=== PATIENT | female | born 1965 | race Caucasian/White ===

== ENCOUNTER 2024-09-12 11:21 | Outpatient (AMB) | payer OTHER, MEDICAID, SELFPAY ==
--- NOTE | 2024-09-12 11:36 | PD.GSCLVISIT ---
Vital Signs - [facility] 09/12/24 11:37 Height 1.63 m Height Method Stated Weight 99.025 kg Weight Measurement Method Standing Scale BMI 37.3 BP 111/74 Blood Pressure Source Automatic Cuff Blood Pressure Location Right Upper Arm Position Sitting Respiration 18 Pulse 88 Pulse Source Monitor Temp 97.5 F Temp Source Temporal Artery Scan Pulse Oximetry (%) 96 Oxygen Delivery Method Room Air Med/Allergies Allergies & Medications Allergies aspirin Allergy (Severe, Verified 09/12/24 11:37) Swelling of Lip/Tongue/Throat codeine Allergy (Severe, Verified 09/12/24 11:37) Unresponsive magnesium sulfate Allergy (Severe, Verified 09/12/24 11:37) Swelling of Lip/Tongue/Throat metoclopramide [From Reglan] Allergy (Severe, Verified 09/12/24 11:37) Vomiting Penicillins Allergy (Severe, Verified 09/12/24 11:37) Hives pepper (genus Capsicum) Allergy (Severe, Verified 09/12/24 11:37) Difficulty Breathing Sulfa (Sulfonamide Antibiotics) Allergy (Severe, Verified 09/12/24 11:37) Swelling of Lip/Tongue/Throat strawberry Allergy (Verified 09/12/24 11:37) Medication Reconciliation lisinopril 20 mg-hydrochlorothiazide 12.5 mg tablet 1 tab PO QDAY 03/27/23 [History Confirmed 09/12/24] acetaminophen 500 mg capsule 500 mg PO Q6H PRN pain #30 caps 04/03/23 [Rx Confirmed 09/12/24] flash glucose scanning reader (Apothesourceyle Russ 2 [place]) #1 ea 05/18/23 [Rx Confirmed 09/12/24] flash glucose sensor (Designer Pages OnlineStyle Russ 2 Sensor kit) #1 ea 06/05/23 [Rx Confirmed 09/12/24] fluticasone 250 mcg-salmeterol 50 mcg/dose blistr powdr for inhalation (Advair Diskus) 1 inh inhalation BID #60 ea 08/18/23 [Rx Confirmed 09/12/24] albuterol sulfate 90 mcg/actuation aerosol inhaler 1 inh inhalation QID PRN shortness of breath or wheezing #6.7 grams 11/30/23 [Rx Confirmed 09/12/24] empagliflozin 25 mg tablet 25 mg PO QAM #30 tabs 11/30/23 [Rx Confirmed 09/12/24] levothyroxine 175 mcg capsule 175 mcg PO QDAY 6 weeks #42 caps 11/30/23 [Rx Confirmed 09/12/24] metoprolol succinate 25 mg tablet,extended release 24 hr 25 mg PO QDAY #30 tabs 11/30/23 [Rx Confirmed 09/12/24] pantoprazole 40 mg tablet,delayed release 40 mg PO QDAY #30 tabs 11/30/23 [Rx Confirmed 09/12/24] pioglitazone 45 mg tablet 45 mg PO QDAY #30 tabs 11/30/23 [Rx Confirmed 09/12/24] pravastatin 80 mg tablet 80 mg PO QDAY #30 tabs 11/30/23 [Rx Confirmed 09/12/24] hydrocodone 7.5 mg-acetaminophen 325 mg tablet 1 tab PO Q8H PRN pain #30 tabs 01/01/24 [Rx Confirmed 09/12/24] flash glucose sensor (FreeStyle Russ 2 Sensor kit) #1 ea 01/18/24 [Rx Confirmed 09/12/24] lancets 28 gauge (Acti-Otilio Lancets) #100 ea 01/18/24 [Rx Confirmed 09/12/24] montelukast 10 mg tablet 10 mg PO QDAY #30 tabs 01/18/24 [Rx Confirmed 09/12/24] sucralfate 1 gram tablet 1 g PO BID 1 month #60 tabs 01/18/24 [Rx Confirmed 09/12/24] pen needle,diabetic dual safty 30 gauge x 3/16 (BD AutoShield Duo Pen Needle) #100 ea 01/19/24 [Rx Confirmed 09/12/24] ondansetron HCl 4 mg tablet 4 mg PO Q8H PRN nausea and vomiting 15 days #30 tabs 01/30/24 [Rx Confirmed 09/12/24] insulin glargine U-300 conc 300 unit/mL (3 mL) subcutaneous pen (Toujeo Max U-300 SoloStar) 80 unit subcut QDAY 08/09/24 [History Confirmed 09/12/24] promethazine 25 mg tablet 25 mg PO TID PRN nausea and vomiting #30 tabs 08/11/24 [Rx Confirmed 09/12/24] MA Intake Visit Data Collection New Patient or Established: Established Patient (seen at [facility] within 3 years) Seen by Clinical Staff ONLY (RN/MA): No Reason for Visit:: THROMBOSED EXTERNAL HEMORRHOID Pain Present Currently: No Wireless Engineer Required: No PCP or OBGYN visit in last 3 months: Yes Hx Now: No Do You Feel Safe at Home: Yes Authorities Contacted: N/A Smoking Status Smoking Status: Former smoker Immunization / Flu Flu Vaccine in the Last 12 Months: No Flu Vaccine Exclusion Criteria: No Exclusion Criteria Past Medical History Past Medical History NEUROLOGIC: Negative Seizures CARDIAC: Positive Cardiac Disorders, Myocardial Infarction, Angina, Coronary Artery Disease and Hypercholesterolemia; Negative Congestive Heart Failure or Hypertension RESPIRATORY: Positive Chronic Obstructive Pulmonary Disease (COPD), Asthma and Pneumonia GASTROINTESTINAL: Positive Colitis and Obstructive Bowel GENITOURINARY: Negative Renal Disease MUSCULOSKELETAL: Positive Arthritis ENDOCRINE: Positive Diabetes Mellitus Type 2 and Hypothyroidism; Negative Diabetes Mellitus Type 1 HEMATOLOGIC: Negative Sickle Cell Disease PSYCHO/SOCIAL: Positive Recreational Drug Use OTHER HISTORY: Positive Hospitalization; Negative Blood Transfusions, Blood Transfusion Reaction or Anesthesia Reactions (Possible reaction to iodine) Family History FAMILY HISTORY: Positive Family Cancer Surgical History SURGICAL: Positive Angiogram and Section Social History SMOKING STATUS: Smoking status: Former smoker ALCOHOL: Alcohol Intake: Never HOUSING: Housing: House LIVES WITH: Lives With: Alone HPI HPI Narrative 59 y/o F presenting to the clinic for painful external hemorrhoid. Per patient, she began having external hemorroids after her recent hospitalization in Jul 2024. The hemorrhoids became intermittently painful 2 weeks ago, 05/08 - 07/09 on painscale, pain with BM or with wiping. She reports pressure pain in the area with friction and pain has not improved with hydrocodone medication. She is not able to take sitz baths due to knee problems and has not tried any other remedy; she reports her BMs alternate between constipation and diarrhea which is a longstanding problem PMH: thyroid, DM- neuropathy, CKD, FLD, 70% occlusion of LAD, COPD. PSH: gallbladder 2001, Colonoscopy 2022, Endoscopy 2023 All: penicillin, asa, sulfa Meds: Lisinopril, metoprolol Familyhx: Dad due to brain CA, Mother: decreased due to lung cancer; following recovery from Breast CA. 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 ROS Review of Systems Systems Reviewed: All systems reviewed, normal except as documented Constitutional Constitutional: Reports as per HPI, Denies fever(s), Denies increased appetite, Denies night sweats, Denies weight gain and Denies weight loss Eyes Eyes: Reports change in vision Comments: Cataracts Cardiovascular Cardiovascular: Denies chest pain with activity, Denies claudication, Denies diaphoresis, Reports dyspnea and Denies pedal edema Respiratory Respiratory: Denies cough, Reports dyspnea and Denies hemoptysis Gastrointestinal Gastrointestinal: Denies abdominal pain Comments: Reports intermittent diarrhea Objective/Exam General General Appearance: alert, in no apparent distress and comfortable Head Head exam: normal inspection Rectal Rectal exam: Present hemorrhoids (1x Lt thrombosed hemorrhoid with minimal discoloration, moderate tenderness to palpation. DAVIDE and anoscopy deferred due to pain) Assessment & Plan Diagnosis / Problem List (1) Hemorrhoid thrombosis: Status: Acute Assessment & Plan: 59 y/o F presenting with 2 week hx of painful external hemorrhoid with signs of thrombosis. We discussed the option of incising and draining the hemorrhoid, however the patient states she would like to attempt conservative management with hot pads, hemorrhoid creams and will consider surgery if recurrent or unable to tolerate pain. All questions were answered and pt agrees to follow up in 6 weeks or sooner if needed Office Procedures GNS Level of Care Nursing/Assessment Patient Status: Established Patient Nursing Assessment/Reassesment: Medication Reconciliation, Update PMH in EMR and Vital Signs Coordination of Care: Complex Care and Chronic Disease 1-5, Education Complex Pt/Fam, Consent,records obtained, informed consent, Results/Orders obtained and Staff clarify orders Established Patient Charge Established Patient Point Assignment: 95 Established Patient Point Charge: EP Level 3 (80-115) Patient Portal Questionaires Social History Living Situation History Housing: House Tobacco History Smoking Status: Former smoker Alcohol History Alcohol Intake: Never Substance Use History Substance Use: Marijuana Domestic Abuse History Do You Feel Safe at Home: Yes Review of Systems Report any current symptoms Only answer those that you have currently: General Complaints fever(s): No increased appetite: No night sweats: No weight gain: No weight loss: No Eyes change in vision: Yes Heart & Circulation chest pain with activity: No leg pain with activity: No excessive sweating: No shortness of breath: Yes foot swelling: No Breathing & Lungs cough: No coughing up blood: No Digestive System abdominal pain: No Past Medical History Past Medical History Have you ever been diagnosed with any of the following: Neurological Problems Seizures: No Cardiology Problems Myocardial Infarction: Yes Angina: Yes Coronary Artery Disease: Yes Hypercholesterolemia: Yes Congestive Heart Failure: No Hypertension: No Respiratory Problems Chronic Obstructive Pulmonary Disease (COPD): Yes Asthma: Yes Pneumonia: Yes Stomache/Intestinal Problems Colitis: Yes Obstructive Bowel: Yes Genital/Urinary Problems Renal Disease: No Musculoskeletal Problems Arthritis: Yes Endocrine Problems Diabetes Mellitus Type 1: No Diabetes Mellitus Type 2: Yes Hypothyroidism: Yes Blood Problems Sickle Cell Disease: No Psychologic Problems Recreational Drug Use: Yes Other Problems Hospitalization: Yes Blood Transfusions: No Blood Transfusion Reaction: No Anesthesia Reactions: No (Possible reaction to iodine)
[2024-09-12 11:37] VITALS: BP 111/74; PULSE 88; RESP 18; TEMP 36.4; O2SAT 96; BMI 37.3
== END 2024-09-12 12:24 | disposition home or self-care (01) ==
LOC: HODSRG 11:22
PROVIDERS: PCP Nurse Practitioner Family; Referring Provider Nurse Practitioner Family; Supervising Provider Surgery; Visit Provider Surgery
DX: K64.5 Perianal venous thrombosis (principal); E78.00 Pure hypercholesterolemia, unspecified; I10 Essential (primary) hypertension; I25.10 Atherosclerotic heart disease of native coronary artery without angina pectoris; J44.9 Chronic obstructive pulmonary disease, unspecified; E11.9 Type 2 diabetes mellitus without complications; E03.9 Hypothyroidism, unspecified; Z87.891 Personal history of nicotine dependence
CPT/HCPCS: 99213; G0463

== ENCOUNTER → 2024-10-10 | Outpatient (CLI) | payer OTHER, MEDICAID, SELFPAY ==
--- NOTE | 2024-10-10 15:15 | XR_ITS ---
MRI shoulder, left, without contrast. Date and time: October 10, 2024 at 1539 hours INDICATIONS: Right shoulder pain one year's stiffness decreased range of motion Technique: Multiple axial, sagittal and coronal sections of the shoulder have been obtained. Siemens high-resolution 1.5 Kacey MRI scanner is utilized. Axial fat-suppressed sections, TR 2350, TE 18 T2-weighted coronal fat-saturated images, TR 3500, TE 7100 T1-weighted coronal images, TR 500, TE 15 T2-weighted sagittal fat-saturated images, TR 3500, TE 57 T1-weighted sagittal sections, TR 504, TE 13. Findings: Supraspinatus tendon insertion is abnormal, 14 mm partial-thickness articular surface tear. Infraspinatus tendon insertion is intact. Subscapularis insertion is intact. Subscapularis bursa is not seen. Long head of the biceps is in the bicipital groove. No definite tear of the biceps superior labral anchor is seen. Retraction of the musculotendinous junction of the rotator cuff is not seen . Tendinosis pattern is moderate. Distance between the acromium and humeral head is 6.6 mm Atrophy of the supraspinatus muscle is severe. Atrophy of the infraspinatus muscle is moderate. Sagittal sections demonstrate a horizontal acromion. Acromioclavicular joint demonstrates mild osteoarthritis . Osacromiale is not identified. Fraying and irregularity anterior superior labral margins. Bony glenoid fossa on the sagittal sections does not demonstrate osseous defect. Occult fracture or area of avascular necrosis is not seen. Acromioclavicular joint separation is not visible. Defect in the posterolateral margin of the humeral head is not seen Impression: 14 mm partial-thickness articular surface tear supraspinatous Fraying and irregularity anterior superior labral margin
== END | disposition home or self-care (01) ==
LOC: SMRI 10-11 07:34
PROVIDERS: PCP Orthopaedic Surgery; Referring Provider Orthopaedic Surgery; Visit Provider Orthopaedic Surgery
DX: M75.101 Unspecified rotator cuff tear or rupture of right shoulder, not specified as traumatic (principal)
CPT/HCPCS: 73221

== ENCOUNTER → 2024-10-15 | Outpatient (CLI) | payer OTHER, MEDICAID, SELFPAY ==
[2024-10-15 09:14] LABS: Basophils # (Auto) 0.1 Thou/mm3 (0.0-0.2); Basophils % (Auto) 1 % (0-2.5); Eosinophils # (Auto) 0.1 Thou/mm3 (0.0-0.5); Eosinophils % (Auto) 2 % (0-10); Hematocrit 40.2 % (36.0-46.0); Hemoglobin 13.7 g/dL (12.0-16.0); Immature Granulocytes % (Auto) 0 % (0-0); Immature Granulocytes Auto 0.02 Thou/mm3 (0.00-0.00); Lymphocytes # (Auto) 1.5 Thou/mm3 (1.0-4.8); Lymphocytes % (Auto) 22 % (10-50); Mean Corpuscular HGB Conc 34.1 g/dl (31.0-37.0); Mean Corpuscular Hemoglobin 29.7 pg (25.0-35.0); Mean Corpuscular Volume 87 fL (80-100); Monocytes # (Auto) 0.6 Thou/mm3 (0.0-0.8); Monocytes % (Auto) 8 % (0-12); Neutrophils # (Auto) 4.6 Thou/mm3 (1.8-7.7); Neutrophils % (Auto) 67 % (37-80); Nucleated Red Blood Cell % 0 /100 WBC (0); Platelet Count 295 Thou/mm3 (140-440); RDW Standard Deviation 47.8 fL (36.4-46.3); Red Blood Count 4.61 Miln/mm3 (4.00-5.20); White Blood Count 6.9 Thou/mm3 (3.6-11.0)
[2024-10-15 09:27] LABS: Glucose Estimated Average 157 mg/dL (80-131); Hemoglobin A1C 7.1 % Hgb (4.8-6.0)
[2024-10-15 09:37] LABS: Alanine Aminotransferase 16 U/L (10-49); Albumin/Globulin Ratio 2.6 (1.2-2.2); Alkaline Phosphatase 64 U/L (46-116); Anion Gap 9 (7-16); Aspartate Amino Transferase 17 U/L (0-34); BUN/Creatinine Ratio 30 Ratio (12-20); Bilirubin,Total 0.3 mg/dL (0.3-1.2); Blood Urea Nitrogen 30 mg/dL (9-23); Calcium 9.9 mg/dL (8.3-10.6); Calcium (Corrected) 9.9 mg/dL (8.5-10.1); Carbon Dioxide 28.3 mMol/L (20.0-31.0); Cardiac Risk Estimate 3.1 RATIO (3.7-5.6); Chloride 99 mMol/L (98-107); Cholesterol 163 mg/dL (132-200); Free T4 (Free Thyroxine) 1.93 ng/dL (0.89-1.76); Globulin 1.9 gm/dL (2.3-3.5); Glucose 187 mg/dL (74-106); HDL Cholesterol 52 mg/dL (40-60); LDL Cholesterol,Calculated 92 mg/dL (0-130); Osmolality,Calculated 283 (275-295); Potassium 4.2 mMol/L (3.4-5.1); Sodium 136 mMol/L (136-145); Thyroid Stimulating Hormone 0.21 uIU/mL (0.55-4.78); Total Protein 6.9 gm/dL (5.7-8.2); Triglycerides 97 mg/dL (30-150); eGFR > 60 See Note
== END | disposition home or self-care (01) ==
PROVIDERS: PCP Nurse Practitioner Family; Referring Provider Nurse Practitioner Family; Visit Provider Nurse Practitioner Family
DX: E11.65 Type 2 diabetes mellitus with hyperglycemia (principal); E03.9 Hypothyroidism, unspecified; Z79.899 Other long term (current) drug therapy
CPT/HCPCS: 36415; 80053; 80061; 83036; 84439; 84443; 85025

== ENCOUNTER 2024-10-31 07:16 | Emergency (ER) | payer OTHER, SELFPAY ==
[2024-10-31 07:29] VITALS: PULSE 91; RESP 24; O2SAT 95; BMI 36.8
[2024-10-31 07:58] VITALS: BP 166/69; PULSE 89; RESP 20; TEMP 37; O2SAT 98
--- NOTE | 2024-10-31 09:12 | XR_ITS ---
Examination: PA lateral chest 2 views TECHNIQUE: Upright PA lateral chest 2 views Exam date and time: October 31, 2024 0933 hours INDICATIONS: Vomiting diarrhea shortness of breath beginning 2 days ago. FINDINGS: Normal heart size Lungs are clear Stable small granuloma in the right upper lobe compared with March 30, 2023 Moderate osteopenia IMPRESSION: No interval pneumonia or pulmonary edema
--- NOTE | 2024-10-31 09:15 | EDRME_ITS ---
Rapid Medical Screening Exam [facility] Arrival date/time: 10/31/24 07:16 Chief Complaint: Flu Like Symptoms Time Seen by Provider: 10/31/24 08:00 Vital signs: Vital Signs Temperature 98.6 F 10/31/24 07:58 Pulse Rate 89 10/31/24 07:58 Respiratory Rate 20 10/31/24 07:58 Blood Pressure 166/69 H 10/31/24 07:58 Pulse Oximetry (%) 98 10/31/24 07:58 Oxygen Delivery Method Room Air 10/31/24 07:58 [facility] Narrative: 59-year-old female with history of diabetes presents emergency department with complaint of excessive thirst, nausea, vomiting, diarrhea, for the past 2 days. Patient denies any alleviating or aggravating factors. Patient denies fever chills or sick contacts.
[2024-10-31 10:10] LABS: Lactate (Lactic Acid) 1.9 mMol/L (0.4-2.0)
[2024-10-31 10:12] LABS: Basophils % (Auto) 0 % (0-2.5); Eosinophils % (Auto) 0 % (0-10); Hematocrit 40.6 % (36.0-46.0); Hemoglobin 14.1 g/dL (12.0-16.0); Immature Granulocytes % (Auto) 0 % (0-0); Immature Granulocytes Auto 0.04 Thou/mm3 (0.00-0.00); Lymphocytes # (Auto) 0.8 Thou/mm3 (1.0-4.8); Lymphocytes % (Auto) 7 % (10-50); Mean Corpuscular HGB Conc 34.7 g/dl (31.0-37.0); Mean Corpuscular Hemoglobin 29.4 pg (25.0-35.0); Mean Corpuscular Volume 85 fL (80-100); Monocytes # (Auto) 0.3 Thou/mm3 (0.0-0.8); Monocytes % (Auto) 2 % (0-12); Neutrophils # (Auto) 10.6 Thou/mm3 (1.8-7.7); Neutrophils % (Auto) 91 % (37-80); Nucleated Red Blood Cell % 0 /100 WBC (0); Platelet Count 305 Thou/mm3 (140-440); RDW Standard Deviation 44.7 fL (36.4-46.3); White Blood Count 11.7 Thou/mm3 (3.6-11.0)
[2024-10-31] MEDS: SODIUM CHLORIDE 0.9% 1000 ML 1,000 ML 999 ML IV (10:15)
[2024-10-31] MEDS: ONDANSETRON INJ 2 MG/ML INJ 2 ML 4 MG IV (10:16)
[2024-10-31 10:39] LABS: Alanine Aminotransferase 22 U/L (10-49); Albumin, Serum 5.4 gm/dL (3.4-4.8); Albumin/Globulin Ratio 2.3 (1.2-2.2); Alkaline Phosphatase 65 U/L (46-116); Anion Gap 14 (7-16); Aspartate Amino Transferase 23 U/L (0-34); BUN/Creatinine Ratio 31 Ratio (12-20); Bilirubin,Total 0.5 mg/dL (0.3-1.2); Blood Urea Nitrogen 47 mg/dL (9-23); Calcium 10.3 mg/dL (8.3-10.6); Calcium (Corrected) 10.3 mg/dL (8.5-10.1); Carbon Dioxide 25.6 mMol/L (20.0-31.0); Chloride 94 mMol/L (98-107); Creatinine (Component) 1.5 mg/dL (0.6-1.3); Estimated Creatinine Clearance 44.7 mL/min (>60); Globulin 2.3 gm/dL (2.3-3.5); Glucose 180 mg/dL (74-106); Osmolality,Calculated 285 (275-295); Potassium 4.1 mMol/L (3.4-5.1); Sodium 134 mMol/L (136-145); Total Protein 7.7 gm/dL (5.7-8.2); eGFR 39 See Note
--- NOTE | 2024-10-31 12:05 | XR_ITS ---
Examination: CT abdomen and pelvis without contrast. Coronal 3-D reconstructions. Sagittal 2-D reconstructions. Date and time of exam:October 31, 2024 1248 hours INDICATIONS: Intermittent abdominal pain nausea vomiting cramping beginning today COMPARISON: 07/02/2023 CTDI: vol (mGy): 15 DLP: (mGycm): 830 Technique: Axial images of the abdomen have been obtained, 3 mm slice thickness Intravenous contrast material has not been administered. Low dose protocols were performed. One or more of the following dose reduction techniques were used; automated exposure control, adjustment of the mA and/or KV according to patient size, use of iterative reconstruction technique. Findings: No focal liver or splenic lesion Absent gallbladder No pancreatic mass Nodular thickening left adrenal gland No renal or ureteral calculi, no hydronephrosis Abdominal aortic calcification no aneurysmal dilatation Normal appendix No bowel obstruction No diverticulitis Atrophic anteverted uterus No adnexal mass Urinary bladder intact Significant osteopenia Moderate narrowing hip joints IMPRESSION: No renal or ureteral calculi, no hydronephrosis Normal appendix No bowel obstruction diverticulitis or free air
[2024-10-31 12:11] LABS: Collection Type, Urine Voided
[2024-10-31 12:15] LABS: Bilirubin,Urine Negative (Negative); Blood,Urine Trace (Negative); Clarity,Urine Clear (Clear/Hazy); Color,Urine Lt-Yellow (Lt Yel-Yel); Culture Indicated,Urine Not Indicated; Glucose, Urine 4+ (Negative); Ketones,Urine 2+ (Negative); Leukocyte Esterase,Urine Negative (Negative); Nitrite,Urine Negative (Negative); PH,Urine 5.5 (5.0-7.0); Protein,Urine Trace (Neg - Trace); RBC,Urine 3 /hpf (0-3); Specific Gravity,Urine 1.026 (1.001-1.035); Squamous Epithelial Cell,Urine < 1 /hpf (0-5); Urobilinogen,Urine Negative mg/dL (0.0-1.0); WBC,Urine 1 /hpf (0-5)
[2024-10-31] MEDS: PROMETHAZINE HCL 25 MG TABLET 50 MG PO (12:17)
[2024-10-31] MEDS: HYDROcodone/APAP 10/325 TAB PO (12:17)
--- NOTE | 2024-10-31 14:39 | EDNOTE_ITS ---
<Statement entered by Heidy Bear MD - 11/01/24 06:45> As co-signing physician, I was present and available for consult prn. I concur with the plan and care as documented by the midlevel provider. ED Abdominal Pain RME/HPI General Chief Complaint: Flu Like Symptoms Stated complaint: FLU LIKE SYMPTOMS Time seen by provider: 10/31/24 08:00 Arrival date/time: 10/31/24 07:16 RME / HPI RME / HPI narrative: 59-year-old female with history of diabetes presents emergency department with complaint of excessive thirst, nausea, vomiting, diarrhea, for the past 2 days. Patient denies any alleviating or aggravating factors. Patient denies fever chills or sick contacts. Related Data Home Medications ?Medication ?Instructions ?Recorded ?Confirmed lisinopril 20 1 tab PO QDAY 03/27/23 09/12/24 mg-hydrochlorothiazide 12.5 mg tablet insulin glargine U-300 conc 300 80 unit subcut QDAY 08/09/24 09/12/24 unit/mL (3 mL) subcutaneous pen (Toujeo Max U-300 SoloStar) Previous Rx's ?Medication ?Instructions ?Recorded acetaminophen 500 mg capsule 500 mg PO Q6H PRN pain #30 caps 04/03/23 flash glucose scanning reader #1 ea 05/18/23 (FreeStyle Russ 2 Snelling) flash glucose sensor (FreeStyle #1 ea 06/05/23 Russ 2 Sensor kit) fluticasone 250 mcg-salmeterol 50 1 inh inhalation BID #60 ea 08/18/23 mcg/dose blistr powdr for inhalation (Advair Diskus) albuterol sulfate 90 mcg/actuation 1 inh inhalation QID PRN shortness 11/30/23 aerosol inhaler of breath or wheezing #6.7 grams empagliflozin 25 mg tablet 25 mg PO QAM #30 tabs 11/30/23 levothyroxine 175 mcg capsule 175 mcg PO QDAY 6 weeks #42 caps 11/30/23 metoprolol succinate 25 mg 25 mg PO QDAY #30 tabs 11/30/23 tablet,extended release 24 hr pantoprazole 40 mg tablet,delayed 40 mg PO QDAY #30 tabs 11/30/23 release pioglitazone 45 mg tablet 45 mg PO QDAY #30 tabs 11/30/23 pravastatin 80 mg tablet 80 mg PO QDAY #30 tabs 11/30/23 hydrocodone 7.5 mg-acetaminophen 1 tab PO Q8H PRN pain #30 tabs 01/01/24 325 mg tablet flash glucose sensor (FreeStyle #1 ea 01/18/24 Russ 2 Sensor kit) lancets 28 gauge (Acti-Otilio #100 ea 01/18/24 Lancets) montelukast 10 mg tablet 10 mg PO QDAY #30 tabs 01/18/24 sucralfate 1 gram tablet 1 g PO BID 1 month #60 tabs 01/18/24 pen needle,diabetic dual safty 30 #100 ea 01/19/24 gauge x 3/16 (BD AutoShield Duo Pen Needle) ondansetron HCl 4 mg tablet 4 mg PO Q8H PRN nausea and 01/30/24 vomiting 15 days #30 tabs promethazine 25 mg tablet 25 mg PO TID PRN nausea and 08/11/24 vomiting #30 tabs promethazine 25 mg tablet 25 mg PO TID #30 tabs 10/31/24 Allergies Allergy/AdvReac Type Severity Reaction Status Date / Time aspirin Allergy Severe Swelling Verified 09/12/24 11:37 of Lip/Tongue/Throat codeine Allergy Severe Unresponsiv Verified 09/12/24 11:37 e magnesium sulfate Allergy Severe Swelling Verified 09/12/24 11:37 of Lip/Tongue/Throat metoclopramide [From Reglan] Allergy Severe Vomiting Verified 09/12/24 11:37 Penicillins Allergy Severe Hives Verified 09/12/24 11:37 pepper (genus Capsicum) Allergy Severe Difficulty Verified 09/12/24 11:37 Breathing strawberry Allergy Severe Swelling Verified 10/31/24 07:36 of Lip/Tongue/Throat Sulfa (Sulfonamide Allergy Severe Swelling Verified 09/12/24 11:37 Antibiotics) of Lip/Tongue/Throat Review of Systems Review of Systems Systems Reviewed: All systems reviewed, normal except as documented Constitutional Constitutional: Reports system reviewed and no additional complaints, except as documented ENT Ears, Nose, Mouth, and Throat: Reports system reviewed and no additional complaints, except as documented Cardiovascular Cardiovascular: Reports system reviewed and no additional complaints, except as documented Respiratory Respiratory: Reports system reviewed and no additional complaints, except as documented Musculoskeletal Musculoskeletal: Reports system reviewed and no additional complaints, except as documented Neurologic Neurologic: Reports system reviewed and no additional complaints, except as documented Psychiatric Psychiatric: Reports system reviewed and no additional complaints, except as documented Endocrine Endocrine: Reports system reviewed and no additional complaints, except as documented ED Exam General General appearance: Present alert and in no apparent distress Head Head exam: Present atraumatic and normocephalic ENT ENT exam: Present normal exam and normal oropharynx Neck Neck exam: Present normal inspection and full ROM Chest Chest inspection: Present normal inspection and symmetric chest wall rise Cardiovascular Cardiovascular exam: Present regular rate and normal rhythm Extremities Exam Extremities exam: Present normal inspection and full ROM Neurological Exam Neurological exam: Present alert and oriented X3 Psychiatric Psychiatric exam: Present normal affect and normal mood Course Quality Measures none Orders Category Date Time Status Bedside COVID-19 Antigen Test NOW Care 10/31/24 09:13 Active Bedside Influenza A&B Antigen Test NOW Care 10/31/24 09:[address] abdomen pelvis wo con Stat Exams 10/31/24 12:05 Completed XR chest 2V Stat Exams 10/31/24 09:12 Completed CBC [CBC] Stat Lab 10/31/24 10:05 Completed CMP [Comprehensive Metabolic Panel] Stat Lab 10/31/24 10:05 Completed Lactic Acid [Lactate (Lactic Acid)] Stat Lab 10/31/24 10:05 Completed Urinalysis, C/S if Indicated Stat Lab 10/31/24 12:03 Completed HYDROcodone/APAP 10/325 [[place] 10/325] Med 10/31/24 12:05 Discontinued 1 tab PO X1 ONE Ondansetron Inj [Zofran Inj] Med 10/31/24 09:14 Discontinued 4 mg IV X1 ONE Promethazine HCl [Phenergan Supp] Med 10/31/24 12:05 Discontinued 50 mg SD X1 ONE Promethazine HCl [Phenergan] Med 10/31/24 12:13 Discontinued 50 mg PO X1 ONE Sodium Chloride 0.9% 1000 ml [Ns] 1,000 ml Med 10/31/24 09:14 Discontinued IV 999 mls/hr Vital Signs Vital signs: Vital Signs Temperature 98.6 F 10/31/24 07:58 Pulse Rate 89 10/31/24 07:58 Respiratory Rate 20 10/31/24 07:58 Blood Pressure 166/69 H 10/31/24 07:58 Pulse Oximetry (%) 98 10/31/24 07:58 Oxygen Delivery Method Room Air 10/31/24 07:58 Abdominal Pain MDM MDM Narrative MDM Narrative:: Etiology of patient's symptoms idiopathic at this visit blood work unremarkable CT unremarkable chest x-ray was also unremarkable patient states she feels better after IV fluids stable to [place] home Patient data External records reviewed:: None Clinical information provided by:: patient Social determinants that could affect healthcare access:: none Patient has the following chronic illnesses:: na How is presenting disease/condition affected by chronic disease/condition?: uneffected by Evaluation data The following diagnostics were reviewed and interpreted by me:: lab results and radiology exam(s) Lab and/or radiology exams considered but not ordered:: both considered and ordered Interpretation Summary: unremarkable Medications / Prescriptions Medications or Prescriptions considered but not ordered:: anti- nausea meds ordered Medication administrations:: Medication Administration History Discontinued Medications Hydrocodone Bitart/Acetaminophen (Hydrocodone/Apap 10/325 Tab) 1 tab PO X1 ONE Stop: 10/31/24 12:06 Last Admin: 10/31/24 12:17 Dose: 1 tab Documented By: EPIFANIO Sodium Chloride (Ns) 1,000 mls @ 999 mls/hr IV .Q1H1M ONE Stop: 10/31/24 10:14 Last Infusion: 10/31/24 13:35 Dose: Infused Documented By: Admin: 10/31/24 10:15 Dose: 999 mls/hr Documented By: EPIFANIO Ondansetron HCl (Ondansetron Inj 2 Mg/Ml Inj 2 Ml) 4 mg IV X1 ONE; Protocol Stop: 10/31/24 09:15 Last Admin: 10/31/24 10:16 Dose: 4 mg Documented By: EPIFANIO Promethazine HCl (Promethazine Hcl 50 Mg Supp) 50 mg SD X1 ONE Stop: 10/31/24 12:06 Last Admin: 10/31/24 12:15 Dose: Not Given Documented By: EPIFANIO Non-Admin Reason: Cancelled by Provider Promethazine HCl (Promethazine Hcl 25 Mg Tablet) 50 mg PO X1 ONE Stop: 10/31/24 12:14 Last Admin: 10/31/24 12:17 Dose: 50 mg Documented By: EPIFANIO per above Consultations Consultation(s) initiated? (list below): No Diagnosis Differential diagnosis abdominal pain: abdominal pain, constipation, diverticulitis, gastroenteritis and small bowel obstruction Most likely diagnosis given after review of the tests above:: nausea, abdominal pain Admission Indicated Admission indicated?: not indicated Admission Request Was there a request for admission?: No Disposition Plan Disposition Plan: Discharge Discharge Attestation Discharge Attestation: The patient and all family members were given an opportunity to ask questions and understood the discharge instructions. Discharge instructions specifically effects, indications for sooner follow up or return to the emergency department, and the expected course of current diagnosis. Patient condition: Stable Discharge Plan Plan Patient Disposition: HOME (Self Care) Prescriptions/Referrals Prescriptions/Med Rec: New promethazine 25 mg tablet 25 mg PO TID Qty: 30 0RF No Action (DME) FreeStyle Russ 2 Snelling Misc See Rx Instructions .Route Qty: 1 0RF Rx Instructions: As directed albuterol sulfate 90 mcg/actuation HFA aerosol inhaler 1 inh inhalation QID PRN (Reason: shortness of breath or wheezing) Qty: 6.7 4RF pantoprazole 40 mg tablet,delayed release (DR/EC) 40 mg PO QDAY Qty: 30 4RF levothyroxine 175 mcg capsule 175 mcg PO QDAY 42 Days Qty: 42 4RF metoprolol succinate 25 mg tablet extended release 24 hr 25 mg PO QDAY Qty: 30 4RF pioglitazone 45 mg tablet 45 mg PO QDAY Qty: 30 4RF pravastatin 80 mg tablet 80 mg PO QDAY Qty: 30 4RF empagliflozin 25 mg tablet 25 mg PO QAM Qty: 30 4RF (DME) FreeStyle Russ 2 Sensor Kit See Rx Instructions .Route Qty: 1 10RF Rx Instructions: As directed hydrocodone-acetaminophen 7.5-325 mg tablet 1 tab PO Q8H MDD 3 PRN (Reason: pain) Qty: 30 0RF (DME) FreeStyle Russ 2 Sensor Kit See Rx Instructions .Route Qty: 1 5RF Rx Instructions: As directed (DME) lancets [Acti-Otilio Lancets] 28 gauge misc See Rx Instructions .Route Qty: 100 3RF Rx Instructions: As directed sucralfate 1 gram tablet 1 g PO BID 30 Days Qty: 60 5RF montelukast 10 mg tablet 10 mg PO QDAY Qty: 30 4RF ondansetron HCl 4 mg tablet 4 mg PO Q8H PRN (Reason: nausea and vomiting) 15 Days Qty: 30 1RF fluticasone propion-salmeterol [Advair Diskus] 250-50 mcg/dose blister with device 1 inh inhalation BID Qty: 60 2RF (DME) BD AutoShield Duo Pen Needle 30 gauge x 3/16 needle See Rx Instructions .Route Qty: 100 0RF Rx Instructions: As directed acetaminophen 500 mg capsule 500 mg PO Q6H PRN (Reason: pain) Qty: 30 0RF lisinopril-hydrochlorothiazide 20-12.5 mg Tablet 1 tab PO QDAY insulin glargine U-300 conc [Toujeo Max U-300 SoloStar] 300 unit/mL (3 mL) insulin pen 80 unit subcut QDAY promethazine 25 mg tablet 25 mg PO TID PRN (Reason: nausea and vomiting) Qty: 30 0RF Referrals: Keyla Merlos FNP [Primary Care Provider] - In 1 week Problem List Clinical Impression: Abdominal pain, Nausea Patient/Caregiver Discharge Instructions Education Materials: Abdominal Pain, ED Flank Pain, Uncertain Cause, ED Pain, Acute, Uncertain Cause Print Language: Sami Stand Alone Forms: Radha Award Info., Patient Portal Info Letter
== END 2024-10-31 15:01 | disposition home or self-care (01) ==
PROVIDERS: Physician Assistant; Emergency Provider Emergency Medicine; PCP Nurse Practitioner Family
DX: R11.2 Nausea with vomiting, unspecified (principal); R10.9 Unspecified abdominal pain; R19.7 Diarrhea, unspecified; R63.1 Polydipsia
CPT/HCPCS: 36415; 71046; 74176; 80053; 81001; 83605; 85025; 87400; 87811; 96361; 96374; 99284; J2405; J7030; A9270

== ENCOUNTER → 2024-11-28 | Outpatient (CLI) | payer OTHER, SELFPAY ==
[2024-11-28 08:37] LABS: Basophils # (Auto) 0.1 Thou/mm3 (0.0-0.2); Basophils % (Auto) 1 % (0-2.5); Eosinophils # (Auto) 0.1 Thou/mm3 (0.0-0.5); Eosinophils % (Auto) 2 % (0-10); Hematocrit 42.1 % (36.0-46.0); Hemoglobin 13.6 g/dL (12.0-16.0); Immature Granulocytes % (Auto) 0 % (0-0); Immature Granulocytes Auto 0.03 Thou/mm3 (0.00-0.00); Lymphocytes # (Auto) 1.5 Thou/mm3 (1.0-4.8); Lymphocytes % (Auto) 23 % (10-50); Mean Corpuscular HGB Conc 32.3 g/dl (31.0-37.0); Mean Corpuscular Hemoglobin 28.8 pg (25.0-35.0); Mean Corpuscular Volume 89 fL (80-100); Monocytes # (Auto) 0.5 Thou/mm3 (0.0-0.8); Monocytes % (Auto) 8 % (0-12); Neutrophils # (Auto) 4.5 Thou/mm3 (1.8-7.7); Neutrophils % (Auto) 67 % (37-80); Nucleated Red Blood Cell % 0 /100 WBC (0); Platelet Count 328 Thou/mm3 (140-440); RDW Standard Deviation 48.4 fL (36.4-46.3); Red Blood Count 4.72 Miln/mm3 (4.00-5.20); White Blood Count 6.7 Thou/mm3 (3.6-11.0)
[2024-11-28 08:49] LABS: Glucose Estimated Average 163 mg/dL (80-131); Hemoglobin A1C 7.3 % Hgb (4.8-6.0)
[2024-11-28 09:03] LABS: B-Type Natriuretic Peptide < 20 pg/mL (0-100)
[2024-11-28 09:18] LABS: Alanine Aminotransferase 22 U/L (10-49); Albumin, Serum 4.8 gm/dL (3.4-4.8); Alkaline Phosphatase 78 U/L (46-116); Anion Gap 8 (7-16); Aspartate Amino Transferase 15 U/L (0-34); BUN/Creatinine Ratio 24 Ratio (12-20); Bilirubin,Direct 0.1 mg/dL (0.0-0.3); Bilirubin,Total 0.3 mg/dL (0.3-1.2); Blood Urea Nitrogen 24 mg/dL (9-23); Calcium 10.1 mg/dL (8.3-10.6); Carbon Dioxide 31.6 mMol/L (20.0-31.0); Cardiac Risk Estimate 3.1 RATIO (3.7-5.6); Chloride 98 mMol/L (98-107); Cholesterol 158 mg/dL (132-200); Free T4 (Free Thyroxine) 1.43 ng/dL (0.89-1.76); Glucose 142 mg/dL (74-106); HDL Cholesterol 51 mg/dL (40-60); LDL Cholesterol,Calculated 84 mg/dL (0-130); Osmolality,Calculated 281 (275-295); Potassium 4.4 mMol/L (3.4-5.1); Sodium 138 mMol/L (136-145); Thyroid Stimulating Hormone 4.62 uIU/mL (0.55-4.78); Total Protein 6.9 gm/dL (5.7-8.2); Triglycerides 117 mg/dL (30-150); eGFR > 60 See Note
== END | disposition home or self-care (01) ==
LOC: COPL 07:41
PROVIDERS: PCP Registered Nurse Community Health; Referring Provider Internal Medicine Cardiovascular Disease; Visit Provider Internal Medicine Cardiovascular Disease
DX: I25.118 Atherosclerotic heart disease of native coronary artery with other forms of angina pectoris (principal); I11.0 Hypertensive heart disease with heart failure; I50.9 Heart failure, unspecified; E78.5 Hyperlipidemia, unspecified; E13.9 Other specified diabetes mellitus without complications
CPT/HCPCS: 36415; 80048; 80061; 80076; 83036; 83880; 84439; 84443; 85025

== ENCOUNTER → 2024-12-19 | Outpatient (CLI) | payer OTHER, SELFPAY ==
[2024-12-19 10:58] LABS: Creatinine MALB Rnd Ur 61 mg/dL (30-125); Microalbumin, Random Urine < 3 mg/L (0-300)
== END | disposition home or self-care (01) ==
PROVIDERS: PCP Registered Nurse Community Health; Referring Provider Registered Nurse Community Health; Visit Provider Registered Nurse Community Health
DX: E11.65 Type 2 diabetes mellitus with hyperglycemia (principal)
CPT/HCPCS: 82043; 82570

== ENCOUNTER 2025-01-10 08:55 | Day surgery (SDC) | payer OTHER, SELFPAY ==
[2025-01-10] VITALS (8 sets, daily range): BP systolic 114–174; BP diastolic 69–98; PULSE 72–89; RESP 14–22; TEMP 37.3–37.5; O2SAT 96–100; BMI 33.6
--- NOTE | 2025-01-10 08:43 | SUR.PREOP ---
Patient expressed gratitude for prayer before their procedure.
--- NOTE | 2025-01-10 08:43 | SUR.PREOP ---
Patient expressed gratitude for prayer before their procedure.
--- NOTE | 2025-01-10 08:44 | SUR.PREOP ---
Patient expressed gratitude for prayer before their procedure.
[2025-01-10 09:54] LABS: Basophils % (Auto) 0 % (0-2.5); Eosinophils % (Auto) 0 % (0-10); Hematocrit 41.4 % (36.0-46.0); Hemoglobin 14.1 g/dL (12.0-16.0); Immature Granulocytes % (Auto) 1 % (0-0); Immature Granulocytes Auto 0.05 Thou/mm3 (0.00-0.00); Lymphocytes # (Auto) 1.1 Thou/mm3 (1.0-4.8); Lymphocytes % (Auto) 11 % (10-50); Mean Corpuscular HGB Conc 34.1 g/dl (31.0-37.0); Mean Corpuscular Hemoglobin 28.5 pg (25.0-35.0); Mean Corpuscular Volume 84 fL (80-100); Monocytes # (Auto) 0.6 Thou/mm3 (0.0-0.8); Monocytes % (Auto) 5 % (0-12); Neutrophils # (Auto) 8.8 Thou/mm3 (1.8-7.7); Neutrophils % (Auto) 83 % (37-80); Nucleated Red Blood Cell % 0 /100 WBC (0); Platelet Count 311 Thou/mm3 (140-440); RDW Standard Deviation 43.4 fL (36.4-46.3); Red Blood Count 4.94 Miln/mm3 (4.00-5.20); White Blood Count 10.6 Thou/mm3 (3.6-11.0)
[2025-01-10 10:08] LABS: Partial Thromboplastin Time 24.6 Seconds (22.0-36.0); Prothrombin Time 11.3 Seconds (9.0-12.2)
[2025-01-10 10:11] LABS: Alanine Aminotransferase 21 U/L (10-49); Albumin, Serum 4.9 gm/dL (3.4-4.8); Alkaline Phosphatase 75 U/L (46-116); Anion Gap 13 (7-16); Aspartate Amino Transferase 24 U/L (0-34); BUN/Creatinine Ratio 27 Ratio (12-20); Bilirubin,Total 0.6 mg/dL (0.3-1.2); Blood Urea Nitrogen 30 mg/dL (9-23); Calcium 9.4 mg/dL (8.3-10.6); Calcium (Corrected) 9.4 mg/dL (8.5-10.1); Carbon Dioxide 25.9 mMol/L (20.0-31.0); Chloride 91 mMol/L (98-107); Creatinine (Component) 1.1 mg/dL (0.6-1.3); Estimated Creatinine Clearance 60.1 mL/min (>60); Globulin 2.4 gm/dL (2.3-3.5); Glucose 173 mg/dL (74-106); Osmolality,Calculated 271 (275-295); Potassium 3.1 mMol/L (3.4-5.1); Sodium 130 mMol/L (136-145); Total Protein 7.3 gm/dL (5.7-8.2); eGFR 57 See Note
[2025-01-10] MEDS: RINGERS LACTATED 1000 ML 1,000 ML 20 ML IV (10:19)
--- NOTE | 2025-01-10 10:57 | SUR.PREOP ---
Patient expressed gratitude for prayer before their procedure.
--- NOTE | 2025-01-10 13:34 | PD.SUROPNT ---
Date of Procedure 01/10/25 Pre Op Diagnosis 1. Right rotator cuff tear 2 right shoulder impingement syndrome Post Op Diagnosis Same Procedure 1. Excision lateral end of the clavicle 2 excision coracoacromial ligament 3 acromioplasty 4 repair of rotator cuff 5 manipulation under anesthesia Findings Refer dictation Procedure Description The patient was given general endotracheal anesthesia. Shoulder block was given as well. Once satisfactory anesthesia was achieved patient was put in about 45?? sitting position with sandbag underneath the right shoulder blade. The part was thoroughly prepped and draped. A skin incision was made at the AC joint extending proximally towards the neck for a half inches and distally towards the arm for about couple of inches. Deeper dissection was carried out. Bleeding vessels were electrocoagulated as and when encountered. The soft tissue was reflected. Following that AC joint was exposed and AC joint was exposed. The deltoid muscle was reflected from the anterior and lateral aspect of the acromial process. The acromion process showed 3 mm osteophytes on the anterior aspect and 2 mm osteophytes on the lateral side. Following that a periosteal elevator was placed underneath the lateral end of the clavicle and lateral 3-4 mm was excised. The coracoacromial ligament was removed. The anterior 3 mm of acromion process including osteophytes were removed with the help of saw. On the lateral side about 3 mm of the acromial process was removed with the osteophytes. With the help of curved osteotome the undersurface of the Acromial processes was chiseled out. That made more room between the superior surface of the head of the humerus and undersurface of the acromial process. Following that the rotator cuff was inspected. It revealed an oval tear, however most of the fibers were attached to the greater tuberosity. Wound was irrigated with antibiotic solution every 4-5 minutes. The left shoulder was manipulated at this time. The rotator cuff tear was repaired with 2-0 Vicryl. 2 drill holes were made on the acromial process and deltoid muscle was stitched back to it. Some reinforcement sutures were placed. The subcutaneous tissue was then closed with the help of 2-0 Vicryl and 3-0 Vicryl in layers. The skin was closed with félix. After cleaning the wound with hydrogel proximal solution and sterile dressing was applied. Patient was taken to the recovery room in good condition. Estimated blood loss full range of abduction and forward flexion was achieved. 10 mL. Prognosis in this case is good. Anesthesia GETA and other Pathology / specimen None Estimated Blood Loss 10 Surgeon Khurram Dominguez MD Surgical Staff Operation Date: 01/10/25 13:15 Case Staff Anesthesiologist: Frandy Weiss RN First Assistant: June Ward
--- NOTE | 2025-01-10 13:35 | SUR.PHASEI ---
pt received from OR in recovery bay 7. pt alseep but responds to voice, breathing unlabored on oxymask 8l. v/s stable. pt dressing to right shoulder cdi. report received from Martina THOMAS and Anita CURRY.
--- NOTE | 2025-01-10 13:50 | SUR.PHASEI ---
pt able to tolerate oral fluids without difficulty swallowing or nausea/vomiting.
--- NOTE | 2025-01-10 14:29 | SUR.PHASEII ---
pt awake and alert, breathing unlabored on room air. v/s stable. pt dressing to right shoulder cdi. pt able to ambulate to wheelchair with steady gait. d/c instructions given with director career services Lela in room, all questions answered. pt d/c via wheelchair with all belongings.
--- NOTE | 2025-01-10 15:35 | ESHP_ITS ---
RE: JIMI BYERS : 1965 DATE OF ADMISSION: 01/10/2025 HISTORY OF PRESENT ILLNESS: The patient came to my office on 01/09/2025 for detailed preop history and physical examination. HISTORY OF PRESENT COMPLAINT: The patient has got pain in the right shoulder. Pain intensity is about 8 to 9/10. The patient is unable to sleep. Pain radiates towards the neck as well as towards the arm. Range of motion is severely restricted. Activities of daily living and quality of life is affected. Conservative treatment did not help her. PAST MEDICAL HISTORY: Patient has a history of diabetes mellitus and high blood pressure. No history of asthma, seizures, chest pain, myocardial infarction, or bleeding disorder. PAST SURGICAL HISTORY: Include , cholecystectomy, and knee surgery. DRUG HISTORY: The patient is taking; 1. Insulin. 2. Jardiance. 3. Levothyroxine. 4. Lisinopril. 5. Lorazepam. 6. Metoprolol. 7. Nitroglycerin. 8. Pantoprazole. 9. Promethazine. ALLERGIES: NIL KNOWN. FAMILY HISTORY AND SOCIAL HISTORY: Noncontributory in this case. PHYSICAL EXAMINATION: GENERAL: Rather overbuilt person. VITAL SIGNS: Pulse 82 per minute. Blood pressure is 148/96. NECK: Soft, supple. No masses felt. Trachea is centrally placed. CARDIOVASCULAR SYSTEM: First and second heart sounds normal. No murmur heard. LUNGS: Bilateral vesicular breath sounds. CHEST: Clear. ABDOMEN: Soft. No masses felt. Bowel sounds present. EXTREMITIES: Right shoulder examination reveals tenderness at 1+ at AC joint. Active range of motion is 0 to 60 degrees of abduction, 0 to 60 degrees of forward flexion. Internal rotation is severely restricted. DIAGNOSTIC DATA: MRI scan was obtained earlier, which revealed torn rotator cuff with arthritic changes. Beside that there is a severe atrophy of the supraspinatus and infraspinatus muscles. ASSESSMENT AND PLAN: Since the patient is symptomatic, therefore, right rotator cuff repair with Fortino procedure was discussed and advised. Detailed discussion took place with a help of shoulder model, etc. No guarantees given regarding the outcome of the procedure. Risks with anesthesia was explained and that includes, but not limited to reaction to anesthetic agents, cardiac arrest or rarely it might be fatal. Risks with operations includes infection and if that happens, the patient will need further surgical procedure. Since the patient has diabetes, therefore, risk of infection is much more compared to the nondiabetic patient. The patient's hemoglobin A1c is within acceptable limit. The patient was also sent to Dr. Stockton and he has cleared her for a surgical procedure. The patient's latest hemoglobin A1c is 7.3. Accordingly surgery is booked for 01/10/2025. All appropriate lab work was done. DT: 14:14:18 TT: 15:34:00 Ref: [id number] - TID: [id number]
== END 2025-01-10 14:29 | disposition home or self-care (01) ==
PROVIDERS: Anesthesiology; PCP Registered Nurse Community Health; Referring Provider Orthopaedic Surgery; Visit Provider Orthopaedic Surgery
PROC: (CPT 23412; principal; 2025-01-10 13:00)
DX: M75.101 Unspecified rotator cuff tear or rupture of right shoulder, not specified as traumatic (principal); M75.41 Impingement syndrome of right shoulder; E11.9 Type 2 diabetes mellitus without complications
CPT/HCPCS: 23412; 36415; 80053; 85025; 85610; 85730; A4217; A4649; J0330; J1580; J2250; J2405; J2704; J2765; J2795; J3010; J3371; J3490; J7040; J7120; J1805

== ENCOUNTER → 2025-02-04 | Outpatient (CLI) | payer OTHER, MEDICAID, SELFPAY ==
[2025-02-04 08:43] LABS: Basophils # (Auto) 0.1 Thou/mm3 (0.0-0.2); Basophils % (Auto) 1 % (0-2.5); Eosinophils # (Auto) 0.3 Thou/mm3 (0.0-0.5); Eosinophils % (Auto) 4 % (0-10); Hematocrit 42.2 % (36.0-46.0); Hemoglobin 13.6 g/dL (12.0-16.0); Immature Granulocytes % (Auto) 0 % (0-0); Immature Granulocytes Auto 0.02 Thou/mm3 (0.00-0.00); Lymphocytes # (Auto) 1.7 Thou/mm3 (1.0-4.8); Lymphocytes % (Auto) 24 % (10-50); Mean Corpuscular HGB Conc 32.2 g/dl (31.0-37.0); Mean Corpuscular Hemoglobin 28.3 pg (25.0-35.0); Mean Corpuscular Volume 88 fL (80-100); Monocytes # (Auto) 0.5 Thou/mm3 (0.0-0.8); Monocytes % (Auto) 8 % (0-12); Neutrophils # (Auto) 4.4 Thou/mm3 (1.8-7.7); Neutrophils % (Auto) 63 % (37-80); Nucleated Red Blood Cell % 0 /100 WBC (0); Platelet Count 383 Thou/mm3 (140-440); RDW Standard Deviation 48.6 fL (36.4-46.3)
[2025-02-04 08:49] LABS: Glucose Estimated Average 166 mg/dL (80-131); Hemoglobin A1C 7.4 % Hgb (4.8-6.0)
[2025-02-04 08:55] LABS: Hepatitis B Surface Ab NonReact(Not Immune) (Immune)
[2025-02-04 08:59] LABS: Alanine Aminotransferase 21 U/L (10-49); Albumin, Serum 4.8 gm/dL (3.4-4.8); Albumin/Globulin Ratio 2.3 (1.2-2.2); Alkaline Phosphatase 83 U/L (46-116); Anion Gap 9 (7-16); Aspartate Amino Transferase 18 U/L (0-34); BUN/Creatinine Ratio 36 Ratio (12-20); Bilirubin,Total 0.4 mg/dL (0.3-1.2); Blood Urea Nitrogen 32 mg/dL (9-23); Calcium 9.8 mg/dL (8.3-10.6); Calcium (Corrected) 9.8 mg/dL (8.5-10.1); Carbon Dioxide 27.8 mMol/L (20.0-31.0); Cardiac Risk Estimate 3.7 RATIO (3.7-5.6); Chloride 101 mMol/L (98-107); Cholesterol 183 mg/dL (132-200); Creatinine (Component) 0.9 mg/dL (0.6-1.3); Globulin 2.1 gm/dL (2.3-3.5); Glucose 135 mg/dL (74-106); HDL Cholesterol 50 mg/dL (40-60); LDL Cholesterol,Calculated 99 mg/dL (0-130); Osmolality,Calculated 284 (275-295); Potassium 5.3 mMol/L (3.4-5.1); Sodium 138 mMol/L (136-145); Total Protein 6.9 gm/dL (5.7-8.2); Triglycerides 170 mg/dL (30-150); eGFR > 60 See Note
== END | disposition home or self-care (01) ==
LOC: COPL 07:48
PROVIDERS: PCP Registered Nurse Community Health; Referring Provider Registered Nurse Community Health; Visit Provider Registered Nurse Community Health
DX: E11.65 Type 2 diabetes mellitus with hyperglycemia (principal); I10 Essential (primary) hypertension; E78.2 Mixed hyperlipidemia; Z01.84 Encounter for antibody response examination
CPT/HCPCS: 36415; 80053; 80061; 83036; 84439; 84443; 85025; 86706; 86735; 86762; 86765

== ENCOUNTER → 2025-03-04 | Outpatient (CLI) | payer OTHER, MEDICAID, SELFPAY ==
[2025-03-04 08:37] LABS: Misc Send Out* See Sep Rpt
[2025-03-04 09:47] LABS: Free T4 (Free Thyroxine) 1.31 ng/dL (0.89-1.76); Thyroid Stimulating Hormone 2.58 uIU/mL (0.55-4.78)
== END | disposition home or self-care (01) ==
LOC: COPL 08:09
PROVIDERS: PCP Registered Nurse Community Health; Referring Provider Registered Nurse Community Health; Visit Provider Registered Nurse Community Health
DX: E03.9 Hypothyroidism, unspecified (principal); Z01.84 Encounter for antibody response examination
CPT/HCPCS: 36415; 84439; 84443; 84480

== ENCOUNTER → 2025-03-05 | Outpatient (CLI) | payer OTHER, MEDICAID, SELFPAY ==
--- NOTE | 2025-03-05 15:43 | XR_ITS ---
Examination: MRI right foot, without intravenous contrast. MRI right foot , with intravenous contrast. Exam date and time: March 05, 2025 1635 hours INDICATIONS: Right foot pain months Technique: Multiple axial, sagittal and coronal images of the right foot have been obtained with the Siemens high-resolution 1.5 Kacey MRI scanner. Images obtained included T2 weighted fat suppressed sagittal sections, TR 3500, TE 46, T2 weighted coronal fat suppressed images, TR 3050, TE 84, T2-weighted transverse fat suppressed images, TR 30-60, TE 63, proton density transverse images, TR 4720, TE 46, and T1 weighted coronal images, TR 560, TE 13. Axial, sagittal and coronal images are obtained post intravenous injection 5 cc gadolinium. Findings: Significant thickening of the Achilles tendon Prominent plantar fasciitis with marked thickening of the plantar fascia No occult fracture Significant osteoarthritis tarsometatarsal joints Negative for sinus Tarsi syndrome Moderate osteoarthritis first metatarsophalangeal joint No cortical bone destruction No occult fractures Postcontrast images demonstrate no abnormal enhancement IMPRESSION: Significant Achilles tendinosis Significant plantar fasciitis Significant osteoarthritis tarsometatarsal joints Moderate osteoarthritis first metatarsophalangeal joint Recommend ultrasound soft tissue follow-up of any palpable foot abnormality
== END | disposition home or self-care (01) ==
PROVIDERS: PCP Registered Nurse Community Health; Referring Provider Registered Nurse Community Health; Visit Provider Registered Nurse Community Health
DX: M72.2 Plantar fascial fibromatosis (principal); M19.071 Primary osteoarthritis, right ankle and foot
CPT/HCPCS: 73720; A9579

== ENCOUNTER → 2025-03-25 | Outpatient (CLI) | payer OTHER, MEDICAID, SELFPAY ==
--- NOTE | 2025-03-25 14:30 | XR_ITS ---
Examination: Screening digital mammography, bilateral Computer aided detection 3-D breast Tomosynthesis, bilateral Date and time of exam: March 25, 2025 1445 hours Compared to mammograms dating to March 22, 2024 Indication: Screening Technique: Nonmagnified MLO, CC views of the breasts to been obtained, reconstructed from 3-D Tomosynthesis images. R2 computer aided detection program utilized for evaluation of suspicious masses and/or abnormal calcifications. 3-D Tomosynthesis images obtained. Findings: Scattered areas of fibroglandular density 3 mm nodule upper outer left breast mid depth Impression: BI-RADS Category 0: Incomplete: Need additional imaging evaluation Recommend follow-up spot tomographic views 3 mm nodule upper outer left breast as well as left breast sonography to complete the workup.
== END | disposition home or self-care (01) ==
PROVIDERS: PCP Registered Nurse Community Health; Referring Provider Registered Nurse Community Health; Visit Provider Registered Nurse Community Health
DX: Z12.31 Encounter for screening mammogram for malignant neoplasm of breast (principal); N63.21 Unspecified lump in the left breast, upper outer quadrant
CPT/HCPCS: 77063; 77067

== ENCOUNTER → 2025-05-14 | Outpatient (CLI) | payer OTHER, MEDICAID, SELFPAY ==
--- NOTE | 2025-05-14 12:30 | XR_ITS ---
Examination: Breast ultrasound, unilateral, left Date and time of exam: May 14, 2025 1207 hours INDICATIONS: Family history breast cancer, mammogram March 25, 2025 3 mm nodule upper outer left breast Technique: Real-time tamez scale ultrasonographic imaging performed left breast including all 4 quadrants as well as nipple retroareolar and axillary region. Findings: No cystic or solid mass IMPRESSION: BI-RADS Category 1: Negative study
--- NOTE | 2025-05-14 13:00 | XR_ITS ---
Examination: Diagnostic digital mammography, unilateral, left Computer aided detection 3-D breast Tomosynthesis, unilateral Date and time of exam: May 14, 2025 1251 hours INDICATIONS: Mammogram March 25, 2025 3 mm nodule upper outer left breast mid depth Technique: Nonmagnified MLO, CC views of the left breast have been obtained, reconstructed from 3-D Tomosynthesis images. R2 computer aided detection program utilized for evaluation of suspicious masses and/or abnormal calcifications. 3-D Tomosynthesis images obtained. Findings: Scattered areas of fibroglandular density. 3 mm nodule is stable, circumscribed upper outer left breast Impression: BI-RADS category 2: Benign findings Return to yearly follow-up mammography
== END | disposition home or self-care (01) ==
LOC: CDIM 12:00
PROVIDERS: PCP Internal Medicine; Referring Provider Registered Nurse Community Health; Visit Provider Registered Nurse Community Health
DX: R92.322 Mammographic fibroglandular density, left breast (principal); N63.21 Unspecified lump in the left breast, upper outer quadrant
CPT/HCPCS: 76641; 77061; 77065; G0279

== ENCOUNTER → 2025-05-21 | Outpatient (CLI) | payer OTHER, MEDICAID, SELFPAY ==
--- NOTE | 2025-05-21 08:28 | XR_ITS ---
Examination: PA lateral chest 2 views TECHNIQUE: Upright PA lateral chest 2 views Date and time: May 21, 2025 0830 hours Comparison October 31, 2024. INDICATIONS: Positive TB skin test this week. FINDINGS: Stable calcified granuloma right upper lobe Normal heart size No pneumonia or pulmonary edema IMPRESSION: No active disease No radiographic findings of active tuberculosis
[2025-05-21 09:14] LABS: Quantiferon-TB* See Sep Rpt
[2025-05-21 09:30] LABS: Basophils # (Auto) 0.1 Thou/mm3 (0.0-0.2); Basophils % (Auto) 1 % (0-2.5); Eosinophils # (Auto) 0.1 Thou/mm3 (0.0-0.5); Eosinophils % (Auto) 1 % (0-10); Hematocrit 40.4 % (36.0-46.0); Hemoglobin 13.1 g/dL (12.0-16.0); Immature Granulocytes Auto 0.03 Thou/mm3 (0.00-0.00); Lymphocytes # (Auto) 1.7 Thou/mm3 (1.0-4.8); Lymphocytes % (Auto) 24 % (10-50); Mean Corpuscular HGB Conc 32.4 g/dl (31.0-37.0); Mean Corpuscular Hemoglobin 28.4 pg (25.0-35.0); Mean Corpuscular Volume 88 fL (80-100); Monocytes # (Auto) 0.5 Thou/mm3 (0.0-0.8); Monocytes % (Auto) 8 % (0-12); Neutrophils # (Auto) 4.6 Thou/mm3 (1.8-7.7); Neutrophils % (Auto) 66 % (37-80); Nucleated Red Blood Cell # 0.00 Thou/mm3 (0.00-0.00); Nucleated Red Blood Cell % 0 /100 WBC (0); Platelet Count 278 Thou/mm3 (140-440); RDW Standard Deviation 47.8 fL (36.4-46.3); Red Blood Count 4.61 Miln/mm3 (4.00-5.20); White Blood Count 7.0 Thou/mm3 (3.6-11.0)
[2025-05-21 09:42] LABS: Glucose Estimated Average 160 mg/dL (80-131); Hemoglobin A1C 7.2 % Hgb (4.8-6.0)
[2025-05-21 10:10] LABS: Alanine Aminotransferase 17 U/L (10-49); Albumin, Serum 4.8 gm/dL (3.4-4.8); Albumin/Globulin Ratio 2.3 (1.2-2.2); Alkaline Phosphatase 83 U/L (46-116); Anion Gap 9 (7-16); Aspartate Amino Transferase 18 U/L (0-34); BUN/Creatinine Ratio 20 Ratio (12-20); Bilirubin,Total 0.3 mg/dL (0.3-1.2); Blood Urea Nitrogen 18 mg/dL (9-23); Calcium 9.6 mg/dL (8.3-10.6); Calcium (Corrected) 9.6 mg/dL (8.5-10.1); Carbon Dioxide 27.9 mMol/L (20.0-31.0); Cardiac Risk Estimate 3.2 RATIO (3.7-5.6); Chloride 102 mMol/L (98-107); Cholesterol 165 mg/dL (132-200); Creatinine (Component) 0.9 mg/dL (0.6-1.3); Globulin 2.1 gm/dL (2.3-3.5); Glucose 104 mg/dL (74-106); HDL Cholesterol 51 mg/dL (40-60); LDL Cholesterol,Calculated 92 mg/dL (0-130); Osmolality,Calculated 279 (275-295); Potassium 4.2 mMol/L (3.4-5.1); Sodium 139 mMol/L (136-145); Thyroid Stimulating Hormone 0.63 uIU/mL (0.55-4.78); Total Protein 6.9 gm/dL (5.7-8.2); Triglycerides 111 mg/dL (30-150); eGFR > 60 See Note
[2025-05-21 11:10] LABS: Creatinine MALB Rnd Ur 27 mg/dL (30-125); Microalbumin, Random Urine < 3 mg/L (0-300)
== END | disposition home or self-care (01) ==
LOC: CDIM 08:19 → COPL 08:46
PROVIDERS: PCP Internal Medicine; Referring Provider Specialist; Visit Provider Radiology Diagnostic Radiology
DX: R91.1 Solitary pulmonary nodule (principal); F41.9 Anxiety disorder, unspecified; E11.22 Type 2 diabetes mellitus with diabetic chronic kidney disease; N18.9 Chronic kidney disease, unspecified; K76.0 Fatty (change of) liver, not elsewhere classified; E11.65 Type 2 diabetes mellitus with hyperglycemia; E78.5 Hyperlipidemia, unspecified; J44.9 Chronic obstructive pulmonary disease, unspecified; G47.30 Sleep apnea, unspecified; M79.604 Pain in right leg; E03.9 Hypothyroidism, unspecified; K59.00 Constipation, unspecified
CPT/HCPCS: 36415; 71046; 80053; 80061; 82043; 82570; 83036; 84443; 85025; 86480

== ENCOUNTER → 2025-06-09 | Outpatient (CLI) | payer MEDICARE, MEDICAID, SELFPAY ==
--- NOTE | 2025-06-09 16:30 | XR_ITS ---
Examination: CT abdomen and pelvis without contrast. Coronal 3-D reconstructions. Sagittal 2-D reconstructions. Date and time of exam:June 09, 2025 1648 hours, comparison October 31, 2024 INDICATIONS: Diagnosis adrenal gland neoplasm CTDI: vol (mGy): 15.1 DLP: (mGycm): 815. Technique: Axial images of the abdomen have been obtained, 3 mm slice thickness Intravenous contrast material has not been administered. Low dose protocols were performed. One or more of the following dose reduction techniques were used; automated exposure control, adjustment of the mA and/or KV according to patient size, use of iterative reconstruction technique. Findings: No focal liver or splenic lesion Absent gallbladder No pancreatic mass Fat-containing nodular thickening of the left adrenal gland No renal or ureteral calculi, no hydronephrosis Aortic calcification no aneurysmal dilatation No pericecal inflammatory change Anteverted uterus Intact urinary bladder Advanced disc narrowing L5-S1 IMPRESSION: Minor fat-containing nodular thickening involving the left adrenal gland
== END | disposition home or self-care (01) ==
LOC: SCAT 16:04
PROVIDERS: PCP Registered Nurse Community Health; Referring Provider Internal Medicine; Visit Provider Internal Medicine
DX: E27.8 Other specified disorders of adrenal gland (principal)
CPT/HCPCS: 74176

== ENCOUNTER → 2025-06-17 | Outpatient (CLI) | payer MEDICARE, MEDICAID, SELFPAY ==
--- NOTE | 2025-06-17 09:42 | XR_ITS ---
Examination: Cervical spine 3 views Technique one AP lateral coned AP odontoid cervical spine 3 views Date and time: June 17, 2025 0953 hours INDICATIONS: Neck pain radiating to the right shoulder beginning December 2024 FINDINGS: Significant osteopenia No cervical fracture. Intact odontoid. No significant cervical disc narrowing IMPRESSION: No cervical fracture No significant cervical disc narrowing Incidental note significant soft tissue bilateral carotid calcification
== END | disposition home or self-care (01) ==
PROVIDERS: PCP Orthopaedic Surgery; Referring Provider Orthopaedic Surgery; Visit Provider Orthopaedic Surgery
DX: M54.2 Cervicalgia (principal)
CPT/HCPCS: 72040

== ENCOUNTER → 2025-06-18 | Outpatient (CLI) | payer MEDICARE, MEDICAID, SELFPAY ==
--- NOTE | 2025-06-18 16:45 | XR_ITS ---
Examination: MRI thoracic spine without contrast. Date and time of exam: June 18, 2025, 1809 hours INDICATIONS: Back pain years Technique: Multiple sagittal and axial images of the thoracic spine have been obtained. T1 weighted localizer, sagittal T2 weighted images, TR 30-50, TE 148, T1 weighted sagittal images, TR 650, TE 14, T2-weighted transverse images, TR 6770, TE 142 Findings: Mild kyphosis dorsal spine Significant osteopenia No acute thoracic fracture Mild thoracic spondylosis Diffuse thoracic disc desiccation The axial images are severely degraded by patient motion and are essentially nondiagnostic No localized enlargement thoracic cord T9-T10 3 mm disc bulge but no encroachment upon the thoracic cord No localized enlargement thoracic cord Impression: Diffuse moderate thoracic degenerative disc disease No significant acquired spinal stenosis
== END | disposition home or self-care (01) ==
LOC: SMRI 16:27
PROVIDERS: PCP Internal Medicine; Referring Provider Internal Medicine; Visit Provider Internal Medicine
DX: M51.34 Other intervertebral disc degeneration, thoracic region (principal)
CPT/HCPCS: 72146

== ENCOUNTER 2025-06-27 05:30 | Day surgery (SDC) | payer MEDICARE, MEDICAID, SELFPAY ==
--- NOTE | 2025-06-26 12:10 | EKG_ITS ---
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
[2025-06-26 12:17] VITALS: BMI 34.8
[2025-06-26 13:16] LABS: Basophils # (Auto) 0.1 Thou/mm3 (0.0-0.2); Basophils % (Auto) 1 % (0-2.5); Eosinophils # (Auto) 0.1 Thou/mm3 (0.0-0.5); Eosinophils % (Auto) 2 % (0-10); Hematocrit 40.3 % (36.0-46.0); Hemoglobin 13.2 g/dL (12.0-16.0); Immature Granulocytes Auto 0.03 Thou/mm3 (0.00-0.00); Lymphocytes # (Auto) 1.5 Thou/mm3 (1.0-4.8); Lymphocytes % (Auto) 22 % (10-50); Mean Corpuscular HGB Conc 32.8 g/dl (31.0-37.0); Mean Corpuscular Hemoglobin 28.6 pg (25.0-35.0); Mean Corpuscular Volume 87 fL (80-100); Monocytes # (Auto) 0.6 Thou/mm3 (0.0-0.8); Monocytes % (Auto) 9 % (0-12); Neutrophils # (Auto) 4.4 Thou/mm3 (1.8-7.7); Neutrophils % (Auto) 66 % (37-80); Nucleated Red Blood Cell # 0.00 Thou/mm3 (0.00-0.00); Nucleated Red Blood Cell % 0 /100 WBC (0); Platelet Count 281 Thou/mm3 (140-440); RDW Standard Deviation 49.0 fL (36.4-46.3); Red Blood Count 4.61 Miln/mm3 (4.00-5.20); White Blood Count 6.7 Thou/mm3 (3.6-11.0)
[2025-06-26 13:35] LABS: Alanine Aminotransferase 18 U/L (10-49); Albumin, Serum 4.7 gm/dL (3.4-4.8); Albumin/Globulin Ratio 2.8 (1.2-2.2); Alkaline Phosphatase 86 U/L (46-116); Anion Gap 10 (7-16); Aspartate Amino Transferase 15 U/L (0-34); BUN/Creatinine Ratio 35 Ratio (12-20); Bilirubin,Total 0.2 mg/dL (0.3-1.2); Blood Urea Nitrogen 28 mg/dL (9-23); Calcium 10.3 mg/dL (8.3-10.6); Calcium (Corrected) 10.3 mg/dL (8.5-10.1); Carbon Dioxide 29.2 mMol/L (20.0-31.0); Chloride 103 mMol/L (98-107); Creatinine (Component) 0.8 mg/dL (0.6-1.3); Estimated Creatinine Clearance 83.1 mL/min (>60); Globulin 1.7 gm/dL (2.3-3.5); Glucose 116 mg/dL (74-106); Osmolality,Calculated 289 (275-295); Potassium 4.0 mMol/L (3.4-5.1); Sodium 142 mMol/L (136-145); Total Protein 6.4 gm/dL (5.7-8.2); eGFR > 60 See Note
--- NOTE | 2025-06-26 14:07 | ESHP_ITS ---
RE: JIMI BYERS : 1965 DATE OF ADMISSION: 06/27/2025 The patient came to my office on for detailed preop history and physical examination. HISTORY OF PRESENTING COMPLAINT: The patient is status post right rotator cuff repair with Fortino procedure done on 01/10/2025. Intraoperative and immediate postoperative recovery was good. However, later on the patient developed frozen shoulder. The patient is unable to move her right shoulder above the shoulder level. In fact the range of motion is severely restricted. Hence, the patient needs manipulation under anesthesia. PAST MEDICAL HISTORY: The patient has a history of diabetes mellitus and high cholesterol. No history of asthma, seizures, chest pain, myocardial infarction, high blood pressure, or stroke. PAST SURGICAL HISTORY: , cholecystectomy in 2001, and knee operation. She is status post right rotator cuff repair on 01/10/2025. DRUG HISTORY: The patient is on; 1. Cyclobenzaprine. 2. Marion. 3. Jardiance. 4. Lisinopril. 5. Levothyroxine. ALLERGIES: TO ASPIRIN. FAMILY HISTORY AND SOCIAL HISTORY: The patient denies smoking, drinking and is not working. PHYSICAL EXAMINATION: GENERAL: Normal built lady. VITAL SIGNS: Pulse is 84 per minute, blood pressure is 130/76. NECK: Soft, supple. No mass felt. Trachea is centrally placed. CARDIOVASCULAR SYSTEM: First and second heart sound normal. No murmur heard. RESPIRATORY SYSTEM: Bilateral vesicular breath sounds. CHEST: Clear. ABDOMEN: Soft. No masses felt. Bowel sounds present. EXTREMITIES: Right shoulder examination revealed a very well-healed scar. There is mild to moderate tenderness. Active range of motion 0-70 degrees of abduction, 0-70 degrees of forward flexion. Internal rotation is not possible. ASSESSMENT: The patient has developed frozen shoulder. PLAN: Detailed discussion took place. Diagnosis and prognosis were explained. Manipulation under anesthesia was discussed. With the help of picture and diagram, it was explained to her. No guarantee is given regarding the outcome of the procedure and functional outcome. The patient wanted to proceed with surgery. Risks with anesthesia was explained and that includes, but not limited to reaction to anesthetic agents, cardiac arrest, or rarely it might be fatal. Risk with operation includes infection and if that happens, the patient may needs further surgical procedure. Other risks include delayed healing, wound dehiscence, etc. No guarantee is given regarding the outcome of the procedure and/or relief of symptoms. Manipulation is booked for 06/27/2025 in [facility]. Appropriate lab work was done. DT: 13:41:44 TT: 14:05:00 Ref: [id number] - TID: [id number]
[2025-06-27 06:11] VITALS: BP 102/61; PULSE 67; RESP 17; TEMP 36.7; O2SAT 99; BMI 33.9
[2025-06-27 07:52] VITALS: BP 101/61; PULSE 62; RESP 15; TEMP 36.6; O2SAT 100
--- NOTE | 2025-06-27 07:52 | SUR.PHASEII ---
0752: Pt. AAOx4, vitals stable, breathing unlabored, complaint of pain, will give pain medicine, bilateral radial pulses strong and regular, pt. able to move bilateral arms, no dressing in place, no active bleed, report received from MD Herring and Rogelio THOMAS.
--- NOTE | 2025-06-27 07:56 | PD.SUROPNT ---
Date of Procedure 06/27/25 Pre Op Diagnosis status post right rotator cuff repair with frozen shoulder Post Op Diagnosis Same Procedure Manipulation under anesthesia Injection of 20 mL of quarter percent Marcaine with 80 mg of Depo-Medrol Findings Adhesive capsulitis with severe restriction of the movement of the right shoulder Procedure Description Patient was given mask anesthesia. Once satisfactory anesthesia achieved the right arm was manipulated. Full range of abduction and full flexion was achieved. The right shoulder was moved quite a few times Following that under aseptic precaution 20 mL of quarter percent Marcaine with 80 mg of Depo-Medrol was injected in the shoulder joint Patient tolerated procedure well. Estimated blood loss 0. Anesthesia MAC Pathology / specimen None Estimated Blood Loss 0 Surgeon Khurram Dominguez MD Surgical Staff Operation Date: 06/27/25 07:15 <No data on this case meets the specified criteria>
[2025-06-27 07:57] VITALS: BP 111/66; PULSE 63; RESP 15; TEMP 36.5; O2SAT 99
[2025-06-27] MEDS: fentaNYL CIT INJ 50 mCg/ML AMP 2ML IVP ×2 (07:59→08:08)
[2025-06-27 08:02] VITALS: BP 114/77; PULSE 68; RESP 14; TEMP 36.6; O2SAT 98
[2025-06-27 08:07] VITALS: BP 141/90; PULSE 73; RESP 18; TEMP 36.4; O2SAT 98
[2025-06-27 08:22] VITALS: BP 135/99; PULSE 68; RESP 18; TEMP 36.4; O2SAT 98
--- NOTE | 2025-06-27 08:30 | SUR.PHASEII ---
0830: Pt. AAOx4,vitals stable, breathing unlabored, no complaint of pain or nausea, no dressing in place, no active bleed noted, bilateral radial pulses strong and regular, cap refill to bilateral hands less than 3 seconds, gave discharge instructions to the pt. and her ride, both verbalized understanding and had no further questions. Pt. left with all personal belongings.
== END 2025-06-27 08:30 | disposition home or self-care (01) ==
PROVIDERS: Anesthesiology; PCP Registered Nurse Community Health; Referring Provider Orthopaedic Surgery; Visit Provider Orthopaedic Surgery
PROC: (CPT 23700; principal; 2025-06-27 07:00)
DX: M75.01 Adhesive capsulitis of right shoulder (principal); Z98.890 Other specified postprocedural states; Z01.810 Encounter for preprocedural cardiovascular examination
CPT/HCPCS: 23700; 36415; 80053; 85025; 93005; A4649; J2371; J2704; J3010; J3490

== ENCOUNTER 2025-07-04 09:29 | Emergency (ER) | payer MEDICARE, MEDICAID, SELFPAY ==
[2025-07-04 09:29] VITALS: BP 157/71; PULSE 88; RESP 17; TEMP 36.8; O2SAT 98
[2025-07-04 09:42] VITALS: PULSE 103; PULSE 88; RESP 20; O2SAT 99
--- NOTE | 2025-07-04 09:42 | XR_ITS ---
Examination: CT abdomen and pelvis without contrast. Coronal 3-D reconstructions. Sagittal 2-D reconstructions. Date and time of exam:July 04, 2025 1116 hours, comparison June 09, 2025 INDICATIONS: Severe nausea vomiting diarrhea beginning this morning with generalized abdominal pain CTDI: vol (mGy): 17.2 DLP: (mGycm): 952 Technique: Axial images of the abdomen have been obtained, 3 mm slice thickness Intravenous contrast material has not been administered. Low dose protocols were performed. One or more of the following dose reduction techniques were used; automated exposure control, adjustment of the mA and/or KV according to patient size, use of iterative reconstruction technique. Findings: Gastric mucosa is thickened with small hyperdense areas in the stomach axial image 49 No focal liver or splenic lesions Absent gallbladder, no common bile duct stones Fat-containing small left adrenal nodule Negative for pancreatitis. No renal or ureteral calculi, no hydronephrosis Abdominal aortic calcification Normal appendix No bowel obstruction No diverticulitis Anteverted uterus, no adnexal mass Urinary bladder intact Severe osteopenia Moderate narrowing hip joints IMPRESSION: Gastritis pattern Normal appendix No bowel obstruction diverticulitis or free air
[2025-07-04 09:45] VITALS: BMI 32.4
[2025-07-04 10:30] LABS: Basophils # (Auto) 0.1 Thou/mm3 (0.0-0.2); Basophils % (Auto) 1 % (0-2.5); Eosinophils # (Auto) 0.0 Thou/mm3 (0.0-0.5); Eosinophils % (Auto) 0 % (0-10); Hematocrit 43.6 % (36.0-46.0); Hemoglobin 14.6 g/dL (12.0-16.0); Immature Granulocytes Auto 0.04 Thou/mm3 (0.00-0.00); Lymphocytes # (Auto) 1.3 Thou/mm3 (1.0-4.8); Lymphocytes % (Auto) 13 % (10-50); Mean Corpuscular HGB Conc 33.5 g/dl (31.0-37.0); Mean Corpuscular Hemoglobin 28.2 pg (25.0-35.0); Mean Corpuscular Volume 84 fL (80-100); Monocytes # (Auto) 0.6 Thou/mm3 (0.0-0.8); Monocytes % (Auto) 6 % (0-12); Neutrophils # (Auto) 7.9 Thou/mm3 (1.8-7.7); Neutrophils % (Auto) 80 % (37-80); Nucleated Red Blood Cell # 0.00 Thou/mm3 (0.00-0.00); Nucleated Red Blood Cell % 0 /100 WBC (0); Platelet Count 336 Thou/mm3 (140-440); RDW Standard Deviation 46.0 fL (36.4-46.3); Red Blood Count 5.17 Miln/mm3 (4.00-5.20); White Blood Count 9.9 Thou/mm3 (3.6-11.0)
[2025-07-04] MEDS: SODIUM CHLORIDE 0.9% 1000 ML 1,000 ML 999 ML IV (10:34)
[2025-07-04] MEDS: MORPHINE SULF INJ 4 MG/ML VIAL IVP (10:34)
[2025-07-04 10:55] LABS: INR 1.0 (0.9-1.3); Prothrombin Time 10.9 Seconds (9.0-12.2)
[2025-07-04 11:01] LABS: Alanine Aminotransferase 24 U/L (10-49); Albumin, Serum 5.1 gm/dL (3.4-4.8); Albumin/Globulin Ratio 2.0 (1.2-2.2); Alkaline Phosphatase 95 U/L (46-116); Anion Gap 15 (7-16); Aspartate Amino Transferase 20 U/L (0-34); BUN/Creatinine Ratio 22 Ratio (12-20); Bilirubin,Total 0.4 mg/dL (0.3-1.2); Blood Urea Nitrogen 24 mg/dL (9-23); Calcium 10.5 mg/dL (8.3-10.6); Calcium (Corrected) 10.5 mg/dL (8.5-10.1); Carbon Dioxide 24.4 mMol/L (20.0-31.0); Chloride 100 mMol/L (98-107); Creatinine (Component) 1.1 mg/dL (0.6-1.3); Estimated Creatinine Clearance 58.2 mL/min (>60); Globulin 2.5 gm/dL (2.3-3.5); Glucose 160 mg/dL (74-106); Lipase 27 U/L (12-53); Magnesium 2.1 mg/dL (1.6-2.6); Osmolality,Calculated 284 (275-295); Potassium 3.7 mMol/L (3.4-5.1); Sodium 139 mMol/L (136-145); Total Protein 7.6 gm/dL (5.7-8.2); eGFR 57 See Note
[2025-07-04] MEDS: PROMETHAZINE INJ 25 MG/ML VIAL IM (11:01)
[2025-07-04 11:28] LABS: Collection Type, Urine Clean Catch
[2025-07-04 11:43] LABS: Amphetamine/Methamp Scrn,U Negative (Negative); Barbiturate Screen,Urine Negative (Negative); Benzodiazepines Screen,Urine Negative (Negative); Benzoylecgonine Screen, Ur Negative (Negative); Fentanyl Screen,Urine Negative (Negative); Opiate Screen,Urine Positive (Negative); THC Screen,Urine Positive (Negative)
[2025-07-04 11:51] LABS: Bilirubin,Urine Negative (Negative); Blood,Urine Negative (Negative); Clarity,Urine Clear (Clear/Hazy); Color,Urine Yellow (Lt Yel-Yel); Glucose, Urine 4+ (Negative); Ketones,Urine 1+ (Negative); Leukocyte Esterase,Urine Negative (Negative); Nitrite,Urine Negative (Negative); PH,Urine 5.0 (5.0-7.0); Protein,Urine Negative (Neg - Trace); RBC,Urine 1 /hpf (0-3); Specific Gravity,Urine 1.029 (1.001-1.035); Squamous Epithelial Cell,Urine < 1 /hpf (0-5); Urobilinogen,Urine Negative mg/dL (0.0-1.0); WBC,Urine 1 /hpf (0-5)
--- NOTE | 2025-07-04 12:54 | PD.EDABDPN ---
ED Abdominal Pain RME/HPI General Chief Complaint: Abdominal Pain Stated complaint: NAUSEA AND VOMITING Time seen by provider: 07/04/25 09:41 Arrival date/time: 07/04/25 09:29 Limitations: no limitations RME / HPI RME / HPI narrative: 60 year old female with history of hypertension, diabetes, hypothyroidism, gastritis, hiatal hernia, peptic ulcer presents to the ED for evaluation of abdominal pain accompanied by nausea and vomiting today. Pain described as aching tightness in sensation that is located most to the epigastric, upper abdominal region, that radiates to her back. Rating as severe. Reportedly had experienced similar abdominal pain and admitted here 07/[address] GI [address] Waddell had evaluated her and advised her symptoms could be THC induced cyclical vomiting syndrome or gastric motility disorder. Denies fevers, chills, sweats, chest pain, cough, shortness of breath, diarrhea, constipation, or urinary symptoms. Related Data Home Medications ?Medication ?Instructions ?Recorded ?Confirmed lisinopril 20 1 tab PO QDAY 03/27/23 06/27/25 mg-hydrochlorothiazide 12.5 mg tablet insulin glargine U-300 conc 300 50 unit subcut QDAY 08/09/24 06/27/25 unit/mL (3 mL) subcutaneous pen (Toujeo Max U-300 SoloStar) budesonide 160 mcg-glycopyr 9 2 inh inhalation BID 01/10/25 06/27/25 mcg-formot 4.8 mcg/actuation HFA inhaler (Breztri Aerosphere) cyclobenzaprine 5 mg tablet 5 mg PO Q8H PRN muscle spasm 01/10/25 06/27/25 empagliflozin 25 mg tablet 25 mg PO QAM 01/10/25 06/27/25 (Jardiance) hydrocodone 10 mg-acetaminophen 1 tab PO Q8H PRN pain 01/10/25 06/27/25 325 mg tablet levothyroxine 137 mcg tablet 137 mcg PO DAILY 01/10/25 06/27/25 linaclotide 290 mcg capsule 290 mcg PO QAM 01/10/25 06/27/25 (Linzess) lorazepam 0.5 mg tablet (Ativan) 0.5 mg PO QDAY PRN anxiety 01/10/25 06/27/25 metoprolol succinate 25 mg 50 mg PO QDAY 01/10/25 06/27/25 tablet,extended release 24 hr montelukast 10 mg tablet 10 mg PO QDAY 01/10/25 06/27/25 nitroglycerin 0.4 mg sublingual 0.4 mg buccal [id number] PRN chest 01/10/25 06/27/25 tablet pain tirzepatide 5 mg/0.5 mL 5 mg subcut QWEEK 06/26/25 06/26/25 subcutaneous pen injector (Carlos) Previous Rx's ?Medication ?Instructions ?Recorded albuterol sulfate 90 mcg/actuation 1 inh inhalation QID PRN shortness 11/30/23 aerosol inhaler of breath or wheezing #6.7 grams pantoprazole 40 mg tablet,delayed 40 mg PO QDAY #30 tabs 11/30/23 release pravastatin 80 mg tablet 80 mg PO QDAY #30 tabs 11/30/23 sucralfate 1 gram tablet 1 g PO BID 1 month #60 tabs 01/18/24 promethazine 25 mg tablet 25 mg PO TID PRN nausea and 08/11/24 vomiting #30 tabs Allergies Allergy/AdvReac Type Severity Reaction Status Date / Time aspirin Allergy Severe Swelling Verified 06/27/25 06:10 of Lip/Tongue/Throat codeine Allergy Severe Unresponsiv Verified 06/27/25 06:10 e magnesium sulfate Allergy Severe Swelling Verified 06/27/25 06:10 of Lip/Tongue/Throat metoclopramide (From Reglan) Allergy Severe Vomiting Verified 06/27/25 06:10 Penicillins Allergy Severe Hives Verified 06/27/25 06:10 pepper (genus Capsicum) Allergy Severe Difficulty Verified 06/27/25 06:10 Breathing strawberry Allergy Severe Swelling Verified 06/27/25 06:10 of Lip/Tongue/Throat Sulfa (Sulfonamide Allergy Severe Swelling Verified 06/27/25 06:10 Antibiotics) of Lip/Tongue/Throat Review of Systems Review of Systems Systems Reviewed: All systems reviewed, normal except as documented Past Medical History Past Medical History CARDIAC: Positive Cardiac Disorders, Myocardial Infarction (2), Angina, Coronary Artery Disease and Hypercholesterolemia RESPIRATORY: Positive Chronic Obstructive Pulmonary Disease (COPD), Asthma and Pneumonia GASTROINTESTINAL: Positive Gastrointestinal Disorders, Colitis and Obstructive Bowel REPRODUCTIVE: Positive Previous Pregnancies (3) MUSCULOSKELETAL: Positive Musculoskeletal Disorders and Arthritis ENT: Positive Cataracts ENDOCRINE: Positive Endocrine Disorders, Diabetes Mellitus Type 2 and Hypothyroidism PSYCHO/SOCIAL: Positive Recreational Drug Use (Heroin and meth, clean) OTHER HISTORY: Positive Hospitalization, Chicken Pox, Measles and Mumps Family History FAMILY HISTORY: Positive Family Cancer Surgical History SURGICAL: Positive Angiogram, Abdominal Surgery, Arthroscopy (aleah knees), Tubal Ligation and Section Social History SMOKING STATUS: Never smoker SUBSTANCE USE: does not use ED Exam General Limitations: Present no limitations General appearance: Present alert and anxious Head Head exam: Present atraumatic Eye Eye exam: Present normal appearance, PERRL and EOMI ENT ENT exam: Present mucous membranes moist and other (poor dentition ) Neck Neck exam: Present normal inspection, full ROM and trachea midline Chest Chest inspection: Present normal inspection and symmetric chest wall rise Respiratory Respiratory exam: Present normal lung sounds bilaterally Cardiovascular Cardiovascular exam: Present regular rate, normal rhythm and normal heart sounds Abdominal Exam Abdominal exam: Present soft and normal bowel sounds; Absent distention, tenderness, guarding, rebound or mass Extremities Exam Extremities exam: Present normal inspection and full ROM Back Exam Back exam: Present normal inspection and full ROM Neurological Exam Neurological exam: Present alert, oriented X3 and CN II-XII intact Psychiatric Psychiatric exam: Present normal affect and normal mood Skin Skin exam: Present warm, dry, intact and normal color Course Quality Measures none Orders Category Date Time Status Manager Relationship STAT Care 07/04/25 09:42 Active Continuous Pulse Oximetry STAT Care 07/04/25 09:42 Completed Insert IV STAT Care 07/04/25 09:42 Active NPO STAT Care 07/04/25 09:[address] abdomen pelvis wo con Stat Exams 07/04/25 09:42 Completed CBC Stat Lab 07/04/25 10:17 Completed Comprehensive Metabolic Panel Stat Lab 07/04/25 10:17 Completed Drug Screen,Urine Stat Lab 07/04/25 11:15 Completed Lipase Stat Lab 07/04/25 10:17 Completed Magnesium Stat Lab 07/04/25 10:17 Completed Prothrombin Time with INR Stat Lab 07/04/25 10:17 Completed Urinalysis Stat Lab 07/04/25 11:15 Completed Morphine* Inj Med 07/04/25 09:42 Discontinued 4 mg IVP X1 ONE Ondansetron Inj [Zofran Inj] Med 07/04/25 09:43 Discontinued 4 mg IVP X1 ONE Pantoprazole Inj [Protonix Inj] Med 07/04/25 13:25 Discontinued 40 mg IVP X1 ONE Promethazine Inj [Phenergan Inj] Med 07/04/25 10:37 Discontinued 25 mg IM X1 ONE Sodium Chloride 0.9% 1000 ml [Ns] 1,000 ml Med 07/04/25 09:42 Discontinued IV 999 mls/hr Vital Signs Vital signs: Vital Signs Temperature 98.3 F 07/04/25 09:29 Pulse Rate 88 07/04/25 09:29 Respiratory Rate 17 07/04/25 09:29 Blood Pressure 157/71 H 07/04/25 09:29 Pulse Oximetry (%) 98 07/04/25 09:29 Oxygen Delivery Method Room Air 07/04/25 09:29 Pulse ox is 98% on room air which is adequate. Abdominal Pain MDM MDM Narrative MDM Narrative:: Libby Lau am scribing for and in the presence of Dr. Jack. Patient data External records reviewed:: [facility] previous records (I reviewed ED visit on 06/23/2025) Clinical information provided by:: patient Social determinants that could affect healthcare access:: mental health (anxiety ) Patient has the following chronic illnesses:: hypertension, diabetes, hypothyroidism, gastritis, hiatal hernia, peptic ulcer How is presenting disease/condition affected by chronic disease/condition?: exacerbated by Evaluation data The following diagnostics were reviewed and interpreted by me:: lab results and radiology exam(s) Lab and/or radiology exams considered but not ordered:: None Interpretation Summary: Ordering Physician: Shamir Jack MD Date of Service: 07/04/25 Procedure(s): CT abdomen pelvis wo [facility] Accession Number(s): [id number] cc: Shamir Jack MD; Peter Boyce MD~ Examination: CT abdomen and pelvis without contrast. Coronal 3-D reconstructions. Sagittal 2-D reconstructions. Date and time of exam:July 04, 2025 1116 hours, comparison June 09, 2025 INDICATIONS: Severe nausea vomiting diarrhea beginning this morning with generalized abdominal pain CTDI: vol (mGy): 17.2 DLP: (mGycm): 952 Technique: Axial images of the abdomen have been obtained, 3 mm slice thickness Intravenous contrast material has not been administered. Low dose protocols were performed. One or more of the following dose reduction techniques were used; automated exposure control, adjustment of the mA and/or KV according to patient size, use of iterative reconstruction technique. Findings: Gastric mucosa is thickened with small hyperdense areas in the stomach axial image 49 No focal liver or splenic lesions Absent gallbladder, no common bile duct stones Fat-containing small left adrenal nodule Negative for pancreatitis. No renal or ureteral calculi, no hydronephrosis Abdominal aortic calcification Normal appendix No bowel obstruction No diverticulitis Anteverted uterus, no adnexal mass Urinary bladder intact Severe osteopenia Moderate narrowing hip joints IMPRESSION: Gastritis pattern Normal appendix No bowel obstruction diverticulitis or free air Dictated By: Peter Boyce MD Signed By: <Electronically signed by Peter Boyce MD in OV> 07/04/25 1138 Medications / Prescriptions Medications or Prescriptions considered but not ordered:: None Medication administrations:: Medication Administration History Discontinued Medications Sodium Chloride (Ns) 1,000 mls @ 999 mls/hr IV .Q1H1M ONE Stop: 07/04/25 10:42 Last Infusion: 07/04/25 11:59 Dose: Infused Documented By: Admin: 07/04/25 10:34 Dose: 999 mls/hr Documented By: DYAN Morphine Sulfate (Morphine Sulf Inj 4 Mg/Ml Vial) 4 mg IVP X1 ONE Stop: 07/04/25 09:43 Last Admin: 07/04/25 10:34 Dose: 4 mg Documented By: DYAN Ondansetron HCl (Ondansetron Inj 2 Mg/Ml Inj 2 Ml) 4 mg IVP X1 ONE Stop: 07/04/25 09:44 Last Admin: 07/04/25 11:00 Dose: Not Given Documented By: DYAN Non-Admin Reason: Discontinued Pantoprazole Sodium (Pantoprazole Inj 40 Mg Vial) 40 mg IVP X1 ONE Stop: 07/04/25 13:26 Last Admin: 07/04/25 13:50 Dose: 40 mg Documented By: DYAN Promethazine HCl (Promethazine Inj 25 Mg/Ml Vial) 25 mg IM X1 ONE; Protocol Stop: 07/04/25 10:38 Last Admin: 07/04/25 11:01 Dose: 25 mg Documented By: DYAN See above Consultations Consultation(s) initiated? (list below): No Diagnosis Differential diagnosis abdominal pain: abdominal pain, constipation, gastroenteritis and pancreatitis Most likely diagnosis given after review of the tests above:: Abdominal pain Gastritis Admission Indicated Admission indicated?: not indicated Admission Request Was there a request for admission?: No Disposition Plan Disposition Plan: Discharge Discharge Attestation Discharge Attestation: The patient and all family members were given an opportunity to ask questions and understood the discharge instructions. Discharge instructions specifically effects, indications for sooner follow up or return to the emergency department, and the expected course of current diagnosis. Patient condition: Stable Discharge Plan Plan Patient Disposition: HOME (Self Care) Prescriptions/Referrals Prescriptions/Med Rec: No Action albuterol sulfate 90 mcg/actuation HFA aerosol inhaler 1 inh inhalation QID PRN (Reason: shortness of breath or wheezing) Qty: 6.7 4RF pantoprazole 40 mg tablet,delayed release (DR/EC) 40 mg PO QDAY Qty: 30 4RF pravastatin 80 mg tablet 80 mg PO QDAY Qty: 30 4RF sucralfate 1 gram tablet 1 g PO BID 30 Days Qty: 60 5RF lorazepam [Ativan] 0.5 mg tablet 0.5 mg PO QDAY PRN (Reason: anxiety) Jardiance 25 mg tablet 25 mg PO QAM hydrocodone-acetaminophen 10-325 mg tablet 1 tab PO Q8H PRN (Reason: pain) montelukast 10 mg tablet 10 mg PO QDAY Linzess 290 mcg capsule 290 mcg PO QAM levothyroxine 137 mcg tablet 137 mcg PO DAILY Patient Comments: TAKE 1 TABLET BY MOUTH DAILY IN THE MORNING ON AN EMPTY STOMACH cyclobenzaprine 5 mg tablet 5 mg PO Q8H PRN (Reason: muscle spasm) Patient Comments: TAKE 1 TABLET BY MOUTH THREE TIMES DAILY NEEDED FOR PAIN Amber Aerosphere 160-9-4.8 mcg/actuation HFA aerosol inhaler 2 inh inhalation BID nitroglycerin 0.4 mg tablet, sublingual 0.4 mg BUCCAL [id number] PRN (Reason: chest pain) Patient Comments: TAKE 1 TABLET UNDER THE TONGUE DIRECTED metoprolol succinate 25 mg tablet extended release 24 hr 50 mg PO QDAY Mounjaro 5 mg/0.5 mL pen injector 5 mg SUBCUT QWEEK Patient Comments: INJECT 5 MG SUBCUTANEOUSLY ONCE A WEEK lisinopril-hydrochlorothiazide 20-12.5 mg Tablet 1 tab PO QDAY insulin glargine U-300 conc [Toujeo Max U-300 SoloStar] 300 unit/mL (3 mL) insulin pen 50 unit subcut QDAY promethazine 25 mg tablet 25 mg PO TID PRN (Reason: nausea and vomiting) Qty: 30 0RF Referrals: Aurelia Pisano FNP [Primary Care Provider] - In 1 week Problem List Clinical Impression: Abdominal pain, Gastritis Patient/Caregiver Discharge Instructions Education Materials: ED Abdominal Pain Unkn Cause Fem, ED Gastritis (Adult) Additional Instructions: Keep your scheduled appointment with GI Dr. Waddell. You can return to the emergency department sooner if symptoms worsen or if you notice any new, concerning issues. Print Language: Polish Stand Alone Forms: Radha Award Info., Patient Portal Info Letter
[2025-07-04 13:41] VITALS: BP 163/74; PULSE 92; RESP 18; TEMP 36.4; O2SAT 99
== END 2025-07-04 16:42 | disposition home or self-care (01) ==
PROVIDERS: Emergency Provider Family Medicine; PCP Registered Nurse Community Health
DX: K29.70 Gastritis, unspecified, without bleeding (principal); I10 Essential (primary) hypertension; E11.9 Type 2 diabetes mellitus without complications; E03.9 Hypothyroidism, unspecified; I25.2 Old myocardial infarction; E78.00 Pure hypercholesterolemia, unspecified; I25.10 Atherosclerotic heart disease of native coronary artery without angina pectoris; J44.89 Other specified chronic obstructive pulmonary disease; Z87.11 Personal history of peptic ulcer disease; Z87.19 Personal history of other diseases of the digestive system; Z79.84 Long term (current) use of oral hypoglycemic drugs; Z79.899 Other long term (current) drug therapy; Z79.4 Long term (current) use of insulin; Z79.85 Long-term (current) use of injectable non-insulin antidiabetic drugs; Z79.890 Hormone replacement therapy; Z88.6 Allergy status to analgesic agent; Z88.5 Allergy status to narcotic agent; Z88.0 Allergy status to penicillin; Z88.2 Allergy status to sulfonamides
CPT/HCPCS: 36415; 74176; 80053; 80307; 81001; 83690; 83735; 85025; 85610; 96361; 96372; 96374; 96375; 99283; J2270; J2470; J2550; J7030

== ENCOUNTER → 2025-07-21 | Outpatient (CLI) | payer MEDICARE, MEDICAID, SELFPAY ==
--- NOTE | 2025-07-21 09:30 | XR_ITS ---
Examination: Abdomen AP single view Technique: AP portable supine abdomen, single view Exam date and time: July 21, 2025 0941 hours INDICATIONS: Left lower abdominal pain and vomiting again 2018. FINDINGS: Moderate to large amounts of stool throughout the colon No obstruction No free air. Surgical clips upper right abdomen. Severe osteopenia IMPRESSION: Moderate to large amounts of stool throughout the colon
== END | disposition home or self-care (01) ==
PROVIDERS: PCP Registered Nurse Community Health; Referring Provider Specialist; Visit Provider Specialist
DX: K59.00 Constipation, unspecified (principal)
CPT/HCPCS: 74018

== ENCOUNTER → 2025-08-08 | Outpatient (CLI) | payer MEDICARE, MEDICAID, SELFPAY ==
--- NOTE | 2025-08-08 13:00 | XR_ITS ---
Examination: MRI cervical spine without intravenous contrast Date and time of exam: August 08, 2025, 1334 hours INDICATIONS: Burning sensation in the neck 20 years Technique: Multiple axial and sagittal sections of the cervical spine to been obtained. T2 weighted sagittal sections, TR 3, 270, TE 117 T1-weighted sagittal sections, TR 500, TE 11 T1-weighted axial sections, TR 607, TE 12, axial sections TR 18, TE 27 and T2 weighted transverse sections, TR 3920, TE 122. Findings: Adequate alignment lumbar vertebral bodies No lumbar fracture Intact odontoid Diffuse cervical disc desiccation No localized enlargement cervical cord C2-C3 no disc protrusion C3-C4 no disc protrusion C4-C5 moderate bilateral neuroforaminal stenosis C5-C6 moderate right neuroforaminal stenosis C6-C7 moderate right neuroforaminal stenosis C7-T1 no disc protrusion IMPRESSION: C4-C5 moderate bilateral neuroforaminal stenosis C5-C6, C6-C7 moderate right neuroforaminal stenosis
== END | disposition home or self-care (01) ==
PROVIDERS: PCP Internal Medicine; Referring Provider Internal Medicine; Visit Provider Internal Medicine
DX: M48.02 Spinal stenosis, cervical region (principal)
CPT/HCPCS: 72141

== ENCOUNTER 2025-08-20 08:04 | Emergency (ER) | payer MEDICARE, MEDICAID, SELFPAY ==
--- NOTE | 2025-08-20 08:19 | XR_ITS ---
Examination: CT abdomen and pelvis without contrast. Coronal 3-D reconstructions. Sagittal 2-D reconstructions. Date and time of exam: August 20, 2025, 0834 hours, comparison 07/04/2025 INDICATIONS: Generalized abdominal pain and bilateral flank pain nausea vomiting ending 5:00 a.m. this morning CTDI: vol (mGy): 10.3 DLP: (mGycm): 598 Technique: Axial images of the abdomen have been obtained, 3 mm slice thickness Intravenous contrast material has not been administered. Low dose protocols were performed. One or more of the following dose reduction techniques were used; automated exposure control, adjustment of the mA and/or KV according to patient size, use of iterative reconstruction technique. Findings: No visualized liver or splenic lesion Absent gallbladder No pancreatic mass Nodular thickening left adrenal gland again noted No renal or ureteral calculi, no hydronephrosis Aortic calcification no aneurysmal dilatation Normal appendix No bowel obstruction or diverticulitis No pelvic mass No bladder mass or bladder calculi Moderate osteopenia IMPRESSION: No renal or ureteral calculi, no hydronephrosis No bladder mass or bladder calculi
--- NOTE | 2025-08-20 08:21 | PD.EDRME ---
Rapid Medical Screening Exam RME Arrival date/time: 08/20/25 08:04 60-year-old female presents to the Emergency Department for complaints of back pain, nausea and vomiting x 1 week Chief Complaint: Urogenital-Female
[2025-08-20 08:22] VITALS: BP 136/84; PULSE 119; RESP 20; TEMP 36.8; O2SAT 99; BMI 31.4
[2025-08-20 09:12] LABS: Collection Type, Urine Clean Catch
[2025-08-20] MEDS: PROMETHAZINE INJ 25 MG/ML VIAL 12.5 MG IM (09:12)
[2025-08-20 09:20] LABS: Bilirubin,Urine Negative (Negative); Blood,Urine Negative (Negative); Clarity,Urine Clear (Clear/Hazy); Color,Urine Yellow (Lt Yel-Yel); Culture Indicated,Urine Not Indicated; Glucose, Urine 4+ (Negative); Ketones,Urine 2+ (Negative); Leukocyte Esterase,Urine Negative (Negative); Nitrite,Urine Negative (Negative); PH,Urine 6.0 (5.0-7.0); Protein,Urine Negative (Neg - Trace); RBC,Urine 1 /hpf (0-3); Specific Gravity,Urine 1.032 (1.001-1.035); Squamous Epithelial Cell,Urine 1 /hpf (0-5); Urobilinogen,Urine Negative mg/dL (0.0-1.0); WBC,Urine 2 /hpf (0-5)
[2025-08-20 09:36] LABS: Basophils # (Auto) 0.1 Thou/mm3 (0.0-0.2); Basophils % (Auto) 1 % (0-2.5); Eosinophils # (Auto) 0.0 Thou/mm3 (0.0-0.5); Eosinophils % (Auto) 0 % (0-10); Hematocrit 40.7 % (36.0-46.0); Hemoglobin 13.9 g/dL (12.0-16.0); Immature Granulocytes Auto 0.06 Thou/mm3 (0.00-0.00); Lymphocytes # (Auto) 0.6 Thou/mm3 (1.0-4.8); Lymphocytes % (Auto) 7 % (10-50); Mean Corpuscular HGB Conc 34.2 g/dl (31.0-37.0); Mean Corpuscular Hemoglobin 28.4 pg (25.0-35.0); Mean Corpuscular Volume 83 fL (80-100); Monocytes # (Auto) 0.6 Thou/mm3 (0.0-0.8); Monocytes % (Auto) 7 % (0-12); Neutrophils # (Auto) 7.5 Thou/mm3 (1.8-7.7); Neutrophils % (Auto) 85 % (37-80); Nucleated Red Blood Cell # 0.00 Thou/mm3 (0.00-0.00); Nucleated Red Blood Cell % 0 /100 WBC (0); Platelet Count 288 Thou/mm3 (140-440); RDW Standard Deviation 43.7 fL (36.4-46.3); Red Blood Count 4.90 Miln/mm3 (4.00-5.20); White Blood Count 8.8 Thou/mm3 (3.6-11.0)
[2025-08-20 09:54] LABS: Alanine Aminotransferase 17 U/L (10-49); Albumin, Serum 4.9 gm/dL (3.4-4.8); Albumin/Globulin Ratio 2.7 (1.2-2.2); Alkaline Phosphatase 75 U/L (46-116); Anion Gap 14 (7-16); Aspartate Amino Transferase 21 U/L (0-34); BUN/Creatinine Ratio 18 Ratio (12-20); Bilirubin,Total 0.6 mg/dL (0.3-1.2); Blood Urea Nitrogen 20 mg/dL (9-23); Calcium 9.4 mg/dL (8.3-10.6); Calcium (Corrected) 9.4 mg/dL (8.5-10.1); Carbon Dioxide 25.8 mMol/L (20.0-31.0); Chloride 94 mMol/L (98-107); Creatinine (Component) 1.1 mg/dL (0.6-1.3); Estimated Creatinine Clearance 57.3 mL/min (>60); Globulin 1.8 gm/dL (2.3-3.5); Glucose 186 mg/dL (74-106); Lipase 28 U/L (12-53); Osmolality,Calculated 275 (275-295); Potassium 3.5 mMol/L (3.4-5.1); Sodium 134 mMol/L (136-145); Total Protein 6.7 gm/dL (5.7-8.2); eGFR 57 See Note
--- NOTE | 2025-08-20 11:28 | PD.EDFMALE ---
ED Female Urogenital RME/HPI General Chief complaint: Urogenital-Female Stated complaint: Back pain, on antibiotics for UTI Time Seen by Provider: 08/20/25 11:28 Arrival date/time: 08/20/25 08:04 Limitations: no limitations RME / HPI RME / HPI Narrative: 08/20/25 08:04 60-year-old female presents to the Emergency Department for complaints of back pain, nausea and vomiting x [address] Oneill evaluation Patient is a 60-year-old female medical history notable for diabetes hypothyroidism hypertension hyperlipidemia COPD hiatal hernia gastritis. This in the emergency department concerns for back pain nausea and vomiting. Related Data Home Medications ?Medication ?Instructions ?Recorded ?Confirmed lisinopril 20 1 tab PO QDAY 03/27/23 06/27/25 mg-hydrochlorothiazide 12.5 mg tablet insulin glargine U-300 conc 300 50 unit subcut QDAY 08/09/24 06/27/25 unit/mL (3 mL) subcutaneous pen (TouTheorem Max U-300 SoloStar) budesonide 160 mcg-glycopyr 9 2 inh inhalation BID 01/10/25 06/27/25 mcg-formot 4.8 mcg/actuation HFA inhaler (Breztri Aerosphere) cyclobenzaprine 5 mg tablet 5 mg PO Q8H PRN muscle spasm 01/10/25 06/27/25 empagliflozin 25 mg tablet 25 mg PO QAM 01/10/25 06/27/25 (Jardiance) hydrocodone 10 mg-acetaminophen 1 tab PO Q8H PRN pain 01/10/25 06/27/25 325 mg tablet levothyroxine 137 mcg tablet 137 mcg PO DAILY 01/10/25 06/27/25 linaclotide 290 mcg capsule 290 mcg PO QAM 01/10/25 06/27/25 (Linzess) lorazepam 0.5 mg tablet (Ativan) 0.5 mg PO QDAY PRN anxiety 01/10/25 06/27/25 metoprolol succinate 25 mg 50 mg PO QDAY 01/10/25 06/27/25 tablet,extended release 24 hr montelukast 10 mg tablet 10 mg PO QDAY 01/10/25 06/27/25 nitroglycerin 0.4 mg sublingual 0.4 mg buccal [id number] PRN chest 01/10/25 06/27/25 tablet pain tirzepatide 5 mg/0.5 mL 5 mg subcut QWEEK 06/26/25 06/26/25 subcutaneous pen injector (Carlos) Previous Rx's ?Medication ?Instructions ?Recorded albuterol sulfate 90 mcg/actuation 1 inh inhalation QID PRN shortness 11/30/23 aerosol inhaler of breath or wheezing #6.7 grams pantoprazole 40 mg tablet,delayed 40 mg PO QDAY #30 tabs 11/30/23 release pravastatin 80 mg tablet 80 mg PO QDAY #30 tabs 11/30/23 sucralfate 1 gram tablet 1 g PO BID 1 month #60 tabs 01/18/24 promethazine 25 mg tablet 25 mg PO TID PRN nausea and 08/11/24 vomiting #30 tabs sucralfate 1 gram tablet (Carafate) 1 g PO BID #10 tabs 08/20/25 Allergies Allergy/AdvReac Type Severity Reaction Status Date / Time aspirin Allergy Severe Swelling Verified 08/20/25 08:09 of Lip/Tongue/Throat codeine Allergy Severe Unresponsiv Verified 08/20/25 08:09 e magnesium sulfate Allergy Severe Swelling Verified 08/20/25 08:09 of Lip/Tongue/Throat metoclopramide (From Reglan) Allergy Severe Vomiting Verified 08/20/25 08:09 Penicillins Allergy Severe Hives Verified 08/20/25 08:09 pepper (genus Capsicum) Allergy Severe Difficulty Verified 08/20/25 08:09 Breathing strawberry Allergy Severe Swelling Verified 08/20/25 08:09 of Lip/Tongue/Throat Sulfa (Sulfonamide Allergy Severe Swelling Verified 08/20/25 08:09 Antibiotics) of Lip/Tongue/Throat ED Exam General Limitations: Present no limitations General appearance: Present alert, in no apparent distress and other (Chronically ill-appearing, acutely uncomfortable) Head Head exam: Present atraumatic and normocephalic Eye Eye exam: Present normal appearance and PERRL ENT ENT exam: Present normal exam and normal oropharynx Neck Neck exam: Present normal inspection and full ROM Chest Chest inspection: Present normal inspection and symmetric chest wall rise Respiratory Respiratory exam: Absent respiratory distress Cardiovascular Cardiovascular exam: Present tachycardia Abdominal Exam Abdominal exam: Present soft, distention and tenderness (Diffuse mild tenderness palpation, no rebound or guarding) Extremities Exam Extremities exam: Present normal inspection Neurological Exam Neurological exam: Present alert and other (Patient is alert and oriented, no focal neurodeficits,) Psychiatric Psychiatric exam: Present normal affect Skin Skin exam: Present warm and dry Course Quality Measures none Orders Category Date Time Status CT abdomen pelvis wo con Stat Exams 08/20/25 08:19 Completed CBC Stat Lab 08/20/25 09:21 Completed Comprehensive Metabolic Panel Stat Lab 08/20/25 09:21 Completed Lipase Stat Lab 08/20/25 09:21 Completed UA, C/S IF [Urinalysis, C/S if Indicated] Stat Lab 08/20/25 09:02 Completed HYDROcodone/APAP 10/325 [[place] 10/325] Med 08/20/25 08:21 Discontinued 1 tab PO X1 ONE LORazepam [Ativan] Med 08/20/25 11:39 Discontinued 0.5 mg PO X1 ONE Lidocaine 2% Viscous [Xylocaine 2% Viscous] Med 08/20/25 11:47 Discontinued 15 ml PO X1 ONE Promethazine Inj [Phenergan Inj] Med 08/20/25 08:19 Discontinued 12.5 mg IM X1 ONE Vital Signs Vital signs: Vital Signs Temperature 98.2 F 08/20/25 08:22 Pulse Rate 119 H 08/20/25 08:22 Respiratory Rate 20 08/20/25 08:22 Blood Pressure 136/84 H 08/20/25 08:22 Pulse Oximetry (%) 99 08/20/25 08:22 Oxygen Delivery Method Room Air 08/20/25 08:22 Urogenital - Female MDM Narrative MDM Narrative:: Patient is a 60-year-old female was in emerged from with concerns for vomiting and back pain. Vital signs and exam as listed. Prior provider evaluated patient. Ordered labs CT and offered medication for symptom relief. Labs without acute hematologic or significant metabolic derangement, lipase not elevated urinalysis without evidence of infection. CT abdomen pelvis without contrast without any abnormalities. Reevaluation patient states that she has chronic gastritis, has been dealing with this for some time. Feels like her prior symptoms of gastritis and ulcers. States that she has been following closely with Dr. Waddell was told that she had ulcers. States that she has pending an appointment at [facility] for management of her ulcers. Her appointment is scheduled for September. States that she has been drinking soda at home, I advised her that this makes her symptoms worse. Advised her on dietary modification including avoiding spicy foods, food that was excessively hot, fatty food, drugs, alcohol, smoking, soda, and anything carbonated, or food this excessively condiment. Dairy may also irritate her symptoms. Patient in agreement. Patient states that she would like a medication for symptom relief now would like to go home. Patient will be discharged she is hemodynamically stable not in distress, tolerating oral intake Patient data External records reviewed:: [facility] previous records Clinical information provided by:: patient Social determinants that could affect healthcare access:: mental health Patient has the following chronic illnesses:: See MDM How is presenting disease/condition affected by chronic disease/condition?: exacerbated by Evaluation data The following diagnostics were reviewed and interpreted by me:: lab results and radiology exam(s) Lab and/or radiology exams considered but not ordered:: None Interpretation Summary: See MDM Medications / Prescriptions Medications or Prescriptions considered but not ordered:: None Medication administrations:: Medication Administration History Discontinued Medications Hydrocodone Bitart/Acetaminophen (Hydrocodone/Apap 10/325 Tab) 1 tab PO X1 ONE Stop: 08/20/25 08:22 Last Admin: 08/20/25 09:13 Dose: 1 tab Documented By: Lidocaine HCl (Lidocaine Viscous 2% 15 Ml Udc) 15 ml PO X1 ONE Stop: 08/20/25 11:48 Last Admin: 08/20/25 12:17 Dose: 15 ml Documented By: Lorazepam (Lorazepam 0.5 Mg Tablet) 0.5 mg PO X1 ONE Stop: 08/20/25 11:40 Last Admin: 08/20/25 12:16 Dose: 0.5 mg Documented By: Promethazine HCl (Promethazine Inj 25 Mg/Ml Vial) 12.5 mg IM X1 ONE; Protocol Stop: 08/20/25 08:20 Last Admin: 08/20/25 09:12 Dose: 12.5 mg Documented By: See [facility] Consultations Consultation(s) initiated? (list below): No Diagnosis Urogenital Female Differential Diagnosis: other (See MDM) Most likely diagnosis given after review of the tests above:: Abdominal pain, nausea Admission Indicated Admission indicated?: not indicated Admission Request Was there a request for admission?: No Disposition Plan Disposition Plan: Discharge Discharge Attestation Discharge Attestation: The patient and all family members were given an opportunity to ask questions and understood the discharge instructions. Discharge instructions specifically effects, indications for sooner follow up or return to the emergency department, and the expected course of current diagnosis. Patient condition: Stable Discharge Plan Plan Patient Disposition: HOME (Self Care) Prescriptions/Referrals Prescriptions/Med Rec: New sucralfate [Carafate] 1 gram tablet 1 g PO BID Qty: 10 0RF No Action albuterol sulfate 90 mcg/actuation HFA aerosol inhaler 1 inh inhalation QID PRN (Reason: shortness of breath or wheezing) Qty: 6.7 4RF pantoprazole 40 mg tablet,delayed release (DR/EC) 40 mg PO QDAY Qty: 30 4RF pravastatin 80 mg tablet 80 mg PO QDAY Qty: 30 4RF sucralfate 1 gram tablet 1 g PO BID 30 Days Qty: 60 5RF lorazepam [Ativan] 0.5 mg tablet 0.5 mg PO QDAY PRN (Reason: anxiety) Jardiance 25 mg tablet 25 mg PO QAM hydrocodone-acetaminophen 10-325 mg tablet 1 tab PO Q8H PRN (Reason: pain) montelukast 10 mg tablet 10 mg PO QDAY Linzess 290 mcg capsule 290 mcg PO QAM levothyroxine 137 mcg tablet 137 mcg PO DAILY Patient Comments: TAKE 1 TABLET BY MOUTH DAILY IN THE MORNING ON AN EMPTY STOMACH cyclobenzaprine 5 mg tablet 5 mg PO Q8H PRN (Reason: muscle spasm) Patient Comments: TAKE 1 TABLET BY MOUTH THREE TIMES DAILY NEEDED FOR PAIN Breztri Aerosphere 160-9-4.8 mcg/actuation HFA aerosol inhaler 2 inh inhalation BID nitroglycerin 0.4 mg tablet, sublingual 0.4 mg BUCCAL [id number] PRN (Reason: chest pain) Patient Comments: TAKE 1 TABLET UNDER THE TONGUE DIRECTED metoprolol succinate 25 mg tablet extended release 24 hr 50 mg PO QDAY Mounjaro 5 mg/0.5 mL pen injector 5 mg SUBCUT QWEEK Patient Comments: INJECT 5 MG SUBCUTANEOUSLY ONCE A WEEK lisinopril-hydrochlorothiazide 20-12.5 mg Tablet 1 tab PO QDAY insulin glargine U-300 conc [Toujeo Max U-300 SoloStar] 300 unit/mL (3 mL) insulin pen 50 unit subcut QDAY promethazine 25 mg tablet 25 mg PO TID PRN (Reason: nausea and vomiting) Qty: 30 0RF Referrals: Aurelia Pisano FNP [Primary Care Provider] - In 1 week Problem List Clinical Impression: Nausea, Abdominal pain Patient/Caregiver Discharge Instructions Education Materials: Abdominal Pain Additional Instructions: Please follow-up with Dr. Waddell, as well as your primary care doctor within 1 to 2 days. It is important that you avoid all fatty, spicy foods. Do not drink anything with carbonation, no alcohol no drugs no smoking. Avoid foods that are excessively hot in temperature. Take your medication as prescribed. Return to the emergency department if you have worsening symptoms or new symptoms of concern. Print Language: Welsh Stand Alone Forms: Radha Award Info., Patient Portal Info Letter
[2025-08-20 11:51] VITALS: BP 158/85; PULSE 102; RESP 18; TEMP 36.7; O2SAT 100
[2025-08-20] MEDS: LIDOCAINE VISCOUS 2% 15 ML UDC PO (12:17)
== END 2025-08-20 13:18 | disposition home or self-care (01) ==
PROVIDERS: Nurse Practitioner Primary Care; Emergency Provider Emergency Medicine; PCP Registered Nurse Community Health
DX: N39.0 Urinary tract infection, site not specified (principal); E03.9 Hypothyroidism, unspecified; E11.9 Type 2 diabetes mellitus without complications; E78.5 Hyperlipidemia, unspecified; I10 Essential (primary) hypertension; J44.9 Chronic obstructive pulmonary disease, unspecified; Z79.84 Long term (current) use of oral hypoglycemic drugs
CPT/HCPCS: 36415; 74176; 80053; 81001; 83690; 85025; 96372; 99284; J2550; J3490; A9270

== ENCOUNTER 2025-08-22 07:50 | Emergency (ER) | payer MEDICARE, MEDICAID, SELFPAY ==
[2025-08-22 07:52] VITALS: BMI 31.4
--- NOTE | 2025-08-22 08:08 | EDRME_ITS ---
Rapid Medical Screening Exam [facility] Arrival date/time: 08/22/25 07:50 60-year-old female with a history of type 2 diabetes, hypothyroidism, presents to the emergency room with a chief complaint of 10 out of 10 epigastric abdominal pain, nausea, vomiting x 3 days I have greeted and performed a focused initial assessment of this patient. A comprehensive ED assessment and evaluation of the patient, analysis of all test results, and completion of the medical decision making process will be conducted by additional ED providers. Chief Complaint: Abdominal Pain Time Seen by Provider: 08/22/25 07:54 Vital signs: Vital Signs Temperature 98.6 F 08/22/25 08:11 Pulse Rate 89 08/22/25 08:11 Respiratory Rate 18 08/22/25 08:11 Blood Pressure 153/81 H 08/22/25 08:11 Pulse Oximetry (%) 98 08/22/25 08:11 Oxygen Delivery Method Room Air 08/22/25 08:11 Vital signs reviewed by provider: Yes Exam: 10 out of 10 abdominal pain with palpation to the epigastric area of her abdomen. Strong and regular rhythm S1 and S2 noted. Clear bilateral lung sounds Clinical Impression: Small bowel obstruction/gastritis
[2025-08-22 08:11] VITALS: BP 153/81; PULSE 89; RESP 18; TEMP 37; O2SAT 98
--- NOTE | 2025-08-22 08:13 | XR_ITS ---
Examination: CT abdomen and pelvis without contrast. Coronal 3-D reconstructions. Sagittal 2-D reconstructions. Date and time of exam: August 22, 2025, 0836 hours, comparison August 20, 2025 INDICATIONS: Generalized abdominal pain nausea vomiting today CTDI: vol (mGy): 10.6 DLP: (mGycm): 597 Technique: Axial images of the abdomen have been obtained, 3 mm slice thickness Intravenous contrast material has not been administered. Low dose protocols were performed. One or more of the following dose reduction techniques were used; automated exposure control, adjustment of the mA and/or KV according to patient size, use of iterative reconstruction technique. Findings: No focal liver or splenic lesions Absent gallbladder No pancreatic mass Nodular thickening left adrenal gland No renal or ureteral calculi, no hydronephrosis Aorta normal size No bowel obstruction No pericecal inflammatory change No diverticulitis Atrophic uterus Urinary bladder intact no cystitis IMPRESSION: No renal or ureteral calculi, no hydronephrosis No CT findings of appendicitis bowel obstruction or diverticulitis Negative for cystitis
[2025-08-22 08:45] LABS: Basophils # (Auto) 0.1 Thou/mm3 (0.0-0.2); Basophils % (Auto) 1 % (0-2.5); Eosinophils # (Auto) 0.1 Thou/mm3 (0.0-0.5); Eosinophils % (Auto) 1 % (0-10); Hematocrit 38.9 % (36.0-46.0); Hemoglobin 13.4 g/dL (12.0-16.0); Immature Granulocytes Auto 0.05 Thou/mm3 (0.00-0.00); Lymphocytes # (Auto) 1.1 Thou/mm3 (1.0-4.8); Lymphocytes % (Auto) 11 % (10-50); Mean Corpuscular HGB Conc 34.4 g/dl (31.0-37.0); Mean Corpuscular Hemoglobin 28.8 pg (25.0-35.0); Mean Corpuscular Volume 84 fL (80-100); Monocytes # (Auto) 0.7 Thou/mm3 (0.0-0.8); Monocytes % (Auto) 7 % (0-12); Neutrophils # (Auto) 8.0 Thou/mm3 (1.8-7.7); Neutrophils % (Auto) 81 % (37-80); Nucleated Red Blood Cell # 0.00 Thou/mm3 (0.00-0.00); Nucleated Red Blood Cell % 0 /100 WBC (0); Platelet Count 300 Thou/mm3 (140-440); RDW Standard Deviation 45.2 fL (36.4-46.3); Red Blood Count 4.65 Miln/mm3 (4.00-5.20); White Blood Count 9.9 Thou/mm3 (3.6-11.0)
[2025-08-22] MEDS: LIDOCAINE VISCOUS 2% 15 ML UDC PO (08:51)
[2025-08-22 09:03] LABS: Alanine Aminotransferase 18 U/L (10-49); Albumin, Serum 4.9 gm/dL (3.4-4.8); Albumin/Globulin Ratio 2.9 (1.2-2.2); Alkaline Phosphatase 70 U/L (46-116); Anion Gap 12 (7-16); Aspartate Amino Transferase 19 U/L (0-34); BUN/Creatinine Ratio 26 Ratio (12-20); Bilirubin,Total 0.4 mg/dL (0.3-1.2); Blood Urea Nitrogen 23 mg/dL (9-23); Calcium 9.8 mg/dL (8.3-10.6); Calcium (Corrected) 9.8 mg/dL (8.5-10.1); Carbon Dioxide 27.3 mMol/L (20.0-31.0); Chloride 96 mMol/L (98-107); Creatinine (Component) 0.9 mg/dL (0.6-1.3); Estimated Creatinine Clearance 70.1 mL/min (>60); Globulin 1.7 gm/dL (2.3-3.5); Glucose 194 mg/dL (74-106); Lipase 28 U/L (12-53); Osmolality,Calculated 278 (275-295); Potassium 3.4 mMol/L (3.4-5.1); Sodium 135 mMol/L (136-145); Total Protein 6.6 gm/dL (5.7-8.2); eGFR > 60 See Note
[2025-08-22 09:10] LABS: Collection Type, Urine Clean Catch
[2025-08-22 09:35] LABS: Bilirubin,Urine Negative (Negative); Blood,Urine Negative (Negative); Clarity,Urine Clear (Clear/Hazy); Color,Urine Lt-Yellow (Lt Yel-Yel); Glucose, Urine 4+ (Negative); Ketones,Urine Negative (Negative); Leukocyte Esterase,Urine Negative (Negative); Nitrite,Urine Negative (Negative); PH,Urine 5.5 (5.0-7.0); Protein,Urine Negative (Neg - Trace); RBC,Urine 1 /hpf (0-3); Specific Gravity,Urine 1.026 (1.001-1.035); Squamous Epithelial Cell,Urine < 1 /hpf (0-5); Urobilinogen,Urine Negative mg/dL (0.0-1.0); WBC,Urine 1 /hpf (0-5)
[2025-08-22 09:38] LABS: HCG Qualitative,Urine Negative
--- NOTE | 2025-08-22 11:48 | PD.EDABDPN ---
ED Abdominal Pain RME/HPI General Chief Complaint: Abdominal Pain Stated complaint: UPPER MID-ABD PAIN; HX HIATAL HERNIA Time seen by provider: 08/22/25 07:54 Arrival date/time: 08/22/25 07:50 Source: patient Mode of arrival: ambulatory Limitations: no limitations RME / HPI MD complaint: abdominal pain Onset (ago): day(s) (7) Consistency: intermittent Location: epigastric Severity: moderate Quality: cramping Radiation: none Migration to: no migration Relieving factors: other (gi cocktail) Exacerbating factors: vomiting and other (Was able to eat dry toast and eggs) Context: other Associated symptoms: nausea, vomiting and other (Anxiety) RME / HPI narrative: 08/22/25 07:50 60-year-old female with a history of type 2 diabetes, hypothyroidism, presents to the emergency room with a chief complaint of 10 out of 10 epigastric abdominal pain, nausea, vomiting x 3 days I have greeted and performed a focused initial assessment of this patient. A comprehensive ED assessment and evaluation of the patient, analysis of all test results, and completion of the medical decision making process will be conducted by additional ED providers. Exam: 10 out of 10 abdominal pain with palpation to the epigastric area of her abdomen. Strong and regular rhythm S1 and S2 noted. Clear bilateral lung sounds Impression: Small bowel obstruction/gastritis Related Data Home Medications ?Medication ?Instructions ?Recorded ?Confirmed lisinopril 20 1 tab PO QDAY 03/27/23 06/27/25 mg-hydrochlorothiazide 12.5 mg tablet insulin glargine U-300 conc 300 50 unit subcut QDAY 08/09/24 06/27/25 unit/mL (3 mL) subcutaneous pen (Toujeo Max U-300 SoloStar) budesonide 160 mcg-glycopyr 9 2 inh inhalation BID 01/10/25 06/27/25 mcg-formot 4.8 mcg/actuation HFA inhaler (Breztri Aerosphere) cyclobenzaprine 5 mg tablet 5 mg PO Q8H PRN muscle spasm 01/10/25 06/27/25 empagliflozin 25 mg tablet 25 mg PO QAM 01/10/25 06/27/25 (Jardiance) hydrocodone 10 mg-acetaminophen 1 tab PO Q8H PRN pain 01/10/25 06/27/25 325 mg tablet levothyroxine 137 mcg tablet 137 mcg PO DAILY 01/10/25 06/27/25 linaclotide 290 mcg capsule 290 mcg PO QAM 01/10/25 06/27/25 (Linzess) lorazepam 0.5 mg tablet (Ativan) 0.5 mg PO QDAY PRN anxiety 01/10/25 06/27/25 metoprolol succinate 25 mg 50 mg PO QDAY 01/10/25 06/27/25 tablet,extended release 24 hr montelukast 10 mg tablet 10 mg PO QDAY 01/10/25 06/27/25 nitroglycerin 0.4 mg sublingual 0.4 mg buccal [id number] PRN chest 01/10/25 06/27/25 tablet pain tirzepatide 5 mg/0.5 mL 5 mg subcut QWEEK 06/26/25 06/26/25 subcutaneous pen injector (Carlos) Previous Rx's ?Medication ?Instructions ?Recorded albuterol sulfate 90 mcg/actuation 1 inh inhalation QID PRN shortness 11/30/23 aerosol inhaler of breath or wheezing #6.7 grams pantoprazole 40 mg tablet,delayed 40 mg PO QDAY #30 tabs 11/30/23 release pravastatin 80 mg tablet 80 mg PO QDAY #30 tabs 11/30/23 sucralfate 1 gram tablet 1 g PO BID 1 month #60 tabs 01/18/24 promethazine 25 mg tablet 25 mg PO TID PRN nausea and 08/11/24 vomiting #30 tabs sucralfate 1 gram tablet (Carafate) 1 g PO BID #10 tabs 08/20/25 Allergies Allergy/AdvReac Type Severity Reaction Status Date / Time aspirin Allergy Severe Swelling Verified 08/22/25 07:55 of Lip/Tongue/Throat codeine Allergy Severe Unresponsiv Verified 08/22/25 07:55 e magnesium sulfate Allergy Severe Swelling Verified 08/22/25 07:55 of Lip/Tongue/Throat metoclopramide (From Reglan) Allergy Severe Vomiting Verified 08/22/25 07:55 Penicillins Allergy Severe Hives Verified 08/22/25 07:55 pepper (genus Capsicum) Allergy Severe Difficulty Verified 08/22/25 07:55 Breathing strawberry Allergy Severe Swelling Verified 08/22/25 07:55 of Lip/Tongue/Throat Sulfa (Sulfonamide Allergy Severe Swelling Verified 08/22/25 07:55 Antibiotics) of Lip/Tongue/Throat tramadol Allergy Severe Vomiting Verified 08/22/25 07:55 ED Exam General Limitations: Present no limitations General appearance: Present alert and in no apparent distress Head Head exam: Present atraumatic Eye Eye exam: Present normal appearance, PERRL and EOMI ENT ENT exam: Present normal exam, normal oropharynx and mucous membranes moist Neck Neck exam: Present normal inspection, full ROM and trachea midline Chest Chest inspection: Present normal inspection and symmetric chest wall rise Respiratory Respiratory exam: Present normal lung sounds bilaterally Cardiovascular Cardiovascular exam: Present regular rate, normal rhythm and normal heart sounds Abdominal Exam Abdominal exam: Present soft and normal bowel sounds Extremities Exam Extremities exam: Present normal inspection and full ROM Back Exam Back exam: Present normal inspection and full ROM Neurological Exam Neurological exam: Present alert, oriented X3 and CN II-XII intact Psychiatric Psychiatric exam: Present normal affect and normal mood Skin Skin exam: Present warm, dry, intact and normal color Course Quality Measures none (lEFT ama) Orders Category Date Time Status Fingerstick [Bedside Blood Glucose] NOW Care 08/22/25 11:[address] abdomen pelvis wo con Stat Exams 08/22/25 08:13 Completed CBC Stat Lab 08/22/25 08:29 Completed CMP [Comprehensive Metabolic Panel] Stat Lab 08/22/25 08:29 Completed HCG Qualitative,Urine Stat Lab 08/22/25 09:01 Completed Lipase Stat Lab 08/22/25 08:29 Completed Troponin I Stat Lab 08/22/25 12:05 Completed UA [Urinalysis] Stat Lab 08/22/25 09:01 Completed Urine Culture Stat Lab 08/22/25 09:01 Completed LORazepam [Ativan] Med 08/22/25 11:54 Discontinued 1 mg PO X1 ONE Lidocaine 2% Viscous [Xylocaine 2% Viscous] Med 08/22/25 08:13 Discontinued 15 ml PO X1 ONE Ondansetron Odt [Zofran Odt] Med 08/22/25 09:13 Discontinued 4 mg PO X1 ONE Ondansetron Odt [Zofran Odt] Med 08/22/25 11:54 Discontinued 4 mg PO X1 ONE Vital Signs Vital signs: Vital Signs Temperature 98.6 F 08/22/25 08:11 Pulse Rate 89 08/22/25 08:11 Respiratory Rate 18 08/22/25 08:11 Blood Pressure 153/81 H 08/22/25 08:11 Pulse Oximetry (%) 98 08/22/25 08:11 Oxygen Delivery Method Room Air 08/22/25 08:11 Abdominal Pain MDM Patient data External records reviewed:: Other (specify) (lEFT ama) Clinical information provided by:: patient Social determinants that could affect healthcare access:: none (lEFT ama) Patient has the following chronic illnesses:: lEFT ama How is presenting disease/condition affected by chronic disease/condition?: exacerbated by Evaluation data The following diagnostics were reviewed and interpreted by me:: other (specify) (lEFT ama) Lab and/or radiology exams considered but not ordered:: lEFT ama Interpretation Summary: lEFT ama Medications / Prescriptions Medications or Prescriptions considered but not ordered:: lEFT ama Medication administrations:: Medication Administration History Discontinued Medications Lidocaine HCl (Lidocaine Viscous 2% 15 Ml Udc) 15 ml PO X1 ONE Stop: 08/22/25 08:14 Last Admin: 08/22/25 08:51 Dose: 15 ml Documented By: NESTOR Lorazepam (Lorazepam 0.5 Mg Tablet) 1 mg PO X1 ONE Stop: 08/22/25 11:55 Last Admin: 08/22/25 12:01 Dose: 1 mg Documented By: BOSTON Ondansetron HCl (Ondansetron Odt 4 Mg Tabrap) 4 mg PO X1 ONE; Protocol Stop: 08/22/25 09:14 Last Admin: 08/22/25 09:33 Dose: Not Given Documented By: NESTOR Non-Admin Reason: Patient Refused Ondansetron HCl (Ondansetron Odt 4 Mg Tabrap) 4 mg PO X1 ONE; Protocol Stop: 08/22/25 11:55 Last Admin: 08/22/25 12:02 Dose: Not Given Documented By: BOSTON Non-Admin Reason: Patient Refused lEFT ama Consultations Consultation(s) initiated? (list below): No Diagnosis Differential diagnosis abdominal pain: other (lEFT ama) Most likely diagnosis given after review of the tests above:: lEFT ama Admission Indicated Admission indicated?: not indicated (lEFT ama) Admission Request Was there a request for admission?: No Disposition Plan Disposition Plan: other (specify) (lEFT ama) Discharge Plan Plan Patient Disposition: Left Against Medical Advice Patient condition on transfer: Stable Prescriptions/Referrals Prescriptions/Med Rec: No Action albuterol sulfate 90 mcg/actuation HFA aerosol inhaler 1 inh inhalation QID PRN (Reason: shortness of breath or wheezing) Qty: 6.7 4RF pantoprazole 40 mg tablet,delayed release (DR/EC) 40 mg PO QDAY Qty: 30 4RF pravastatin 80 mg tablet 80 mg PO QDAY Qty: 30 4RF sucralfate 1 gram tablet 1 g PO BID 30 Days Qty: 60 5RF lorazepam [Ativan] 0.5 mg tablet 0.5 mg PO QDAY PRN (Reason: anxiety) Jardiance 25 mg tablet 25 mg PO QAM hydrocodone-acetaminophen 10-325 mg tablet 1 tab PO Q8H PRN (Reason: pain) montelukast 10 mg tablet 10 mg PO QDAY Linzess 290 mcg capsule 290 mcg PO QAM levothyroxine 137 mcg tablet 137 mcg PO DAILY Patient Comments: TAKE 1 TABLET BY MOUTH DAILY IN THE MORNING ON AN EMPTY STOMACH cyclobenzaprine 5 mg tablet 5 mg PO Q8H PRN (Reason: muscle spasm) Patient Comments: TAKE 1 TABLET BY MOUTH THREE TIMES DAILY NEEDED FOR PAIN Breztri Aerosphere 160-9-4.8 mcg/actuation HFA aerosol inhaler 2 inh inhalation BID nitroglycerin 0.4 mg tablet, sublingual 0.4 mg BUCCAL [id number] PRN (Reason: chest pain) Patient Comments: TAKE 1 TABLET UNDER THE TONGUE DIRECTED metoprolol succinate 25 mg tablet extended release 24 hr 50 mg PO QDAY Mounjaro 5 mg/0.5 mL pen injector 5 mg SUBCUT QWEEK Patient Comments: INJECT 5 MG SUBCUTANEOUSLY ONCE A WEEK sucralfate [Carafate] 1 gram tablet 1 g PO BID Qty: 10 0RF lisinopril-hydrochlorothiazide 20-12.5 mg Tablet 1 tab PO QDAY insulin glargine U-300 conc [Toujeo Max U-300 SoloStar] 300 unit/mL (3 mL) insulin pen 50 unit subcut QDAY promethazine 25 mg tablet 25 mg PO TID PRN (Reason: nausea and vomiting) Qty: 30 0RF Referrals: Aurelia Pisano, COMMUNICATIONS OFFICER [Primary Care Provider] - In 1 week Problem List Clinical Impression: Left against medical advice Patient/Caregiver Discharge Instructions Print Language: Tamazight
--- NOTE | 2025-08-22 12:36 | PC.NURSE ---
@1233- PT AT TRIAGE REPORTING TO THIS RN THAT I WANT TO LEAVE; MY RIDE IS HERE. HOW LONG DO I HAVE TO WAIT? PT EDUCATED THAT ANOTHER LAB WAS ADDED ON BY THE PROVIDER. PER PT, NO, I'M JUST GOING TO LEAVE. I WANT TO GO HOME, GET IN A SHOWER, AND GET TO BED. THIS RN EXPLAINED TO PT RISKS OF LEAVING AMA, INCL. CARDIAC & RESPIRATORY ARREST. PT A&OX4, GCS 15. PT SIGNED AMA FORM. PT LEFT AMA.
[2025-08-22 12:42] LABS: Troponin I < 0.002 ng/mL (0.0-0.045)
== END 2025-08-22 12:39 | disposition left against medical advice (07) ==
PROVIDERS: Nurse Practitioner Family; Emergency Provider Emergency Medicine; PCP Registered Nurse Community Health
DX: K56.609 Unspecified intestinal obstruction, unspecified as to partial versus complete obstruction (principal); K29.70 Gastritis, unspecified, without bleeding; Z53.29 Procedure and treatment not carried out because of patient's decision for other reasons
CPT/HCPCS: 36415; 74176; 80053; 81001; 81025; 83690; 84484; 85025; 87086; 99282; J3490; A9270